=== PATIENT | male | born 1975 | race Caucasian/White ===

== ENCOUNTER 2016-04-25 10:48 | Inpatient (IN) | payer OTHER ==
[~2016-04-25] VITALS: Ht 188 cm; Wt 108.9 kg
--- NOTE | 2016-04-25 10:53 | NUR ---
THOUGHTS OF HURTING HIMSELF FOR THE PAST FEW DAYS, STATES THAT HE CAN'T STOP USING HEROINE , HAS BEEN DRINKING DAILY FOR THE PAST 3 WEEKS. STATES THAT HE IS OVERWHELMED WITH LIFE. HAS A HISTORY OF DEPRESSION AND IT IS GETTING WORSE, DOES NOT TAKE ANY MEDS FOR IT. PLAN TO OVER DOSE
--- NOTE | 2016-04-25 11:26 | ED PSYCHIATRIC COMPLAINT ---
History of Present Illness General Chief Complaint: Psychiatric Related Complaint Stated Complaint: +SI Source: patient Exam Limitations: no limitations Vital Signs & Intake/Output Vital Signs & Intake/Output Vital Signs Date Time Temp Pulse Resp B/P Pulse O2 O2 Flow FiO2 Ox Delivery Rate 04/25 1647 97.5 80 20 130/70 98 Room Air 04/25 1053 97.0 80 18 152/86 97 Room Air Allergies Coded Allergies: NO KNOWN ALLERGIES (09/25/12) Reconcile Medications Gabapentin 600 MG TABLET 1 TAB PO TID UNKNOWN (Reported) Hydrocodone/Acetaminophen (Vicodin 5-300 MG Tablet) 5 MG-300 MG TABLET 1 TAB PO Q4-6 PRN PAIN (Reported) Pantoprazole Sodium (Protonix) 20 MG TABLET.DR 1 TAB PO DAILY GI (Reported) Triage Note: THOUGHTS OF HURTING HIMSELF FOR THE PAST FEW DAYS, STATES THAT HE CAN'T STOP USING HEROINE , HAS BEEN DRINKING DAILY FOR THE PAST 3 WEEKS. STATES THAT HE IS OVERWHELMED WITH LIFE. HAS A HISTORY OF DEPRESSION AND IT IS GETTING WORSE, DOES NOT TAKE ANY MEDS FOR IT. PLAN TO OVER DOSE Triage Nurses Notes Reviewed? yes Onset: Abrupt Duration: constant Timing: recent history Severity: severe Severity Numbers: 10 HPI: Patient is a 40-year-old male with a past medical history of polysubstance abuse and depression who presents to emergency room in which he presented on his own accord who states that he has a history of depression and polysubstance abuse in which she states that his depression has worsened recently in which patient is coping with his depression with drinking alcohol and doing cocaine and heroin. Patient states that he drank a sixpack in the last 12 hours and did cocaine and heroin last night. Patient also states that he has had severe thoughts of "giving up" in which he states that he would harm himself by overdosing on drugs. Patient is unemployed and lives with a roommate. Patient denies any current illness. Denies any auditory or visual hallucinations. Denies any as I a firearm. Patient no homicidal ideation and no previous attempts of harming himself in the past. Patient does state approximate 3 years ago he was evaluated on a few occasions at care however nothing since and patient does not take any medications for symptoms. Past History Travel History Traveled to [place] past 21 day No Medical History Any Pertinent Medical History? none Neurological: NONE EENT: NONE Cardiovascular: NONE Respiratory: NONE Gastrointestinal: NONE Hepatic: NONE Renal: NONE Musculoskeletal: NONE Psychiatric: NONE Endocrine: NONE Blood Disorders: NONE Cancer(s): NONE Surgical History Surgical History: non-contributory Psychosocial History What is your primary language Azeri Tobacco Use: Current Daily Use Daily Tobacco Use Amount/Type: => 5 Cigarettes daily ETOH Use: heavy use Illicit Drug Use: heroin Family History Hx Contributory? No Review of Systems Review of Systems Constitutional: Reports: no symptoms. EENTM: Reports: no symptoms. Respiratory: Reports: no symptoms. Cardiovascular: Reports: no symptoms. GI: Reports: no symptoms. Genitourinary: Reports: no symptoms. Musculoskeletal: Reports: no symptoms. Skin: Reports: no symptoms. Neurological/Psychological: Reports: see HPI, depressed. Hematologic/Endocrine: Reports: no symptoms. Immunologic/Allergic: Reports: no symptoms. All Other Systems: Reviewed and Negative Physical Exam Physical Exam General Appearance: no apparent distress, alert Neurological/Psychiatric: no motor/sensory deficits, awake, alert, calm Appearance/Memory/Insight: appropriate appearance, appropriate insight Behavoir/Eye Contact/Speech: cooperative, normal speech, good eye contact Thoughts/Hallucinations: normal thought pattern, no apparent hallucination Comments: Well-developed well-nourished person in no acute distress HEENT: Normal EENT exam, extraocular motion intact, no nystagmus. Pupils equally round and reactive to light and accommodation. Nose is atraumatic. External auditory canal and Tympanic membranes clear. Pharynx normal. No swelling or edema. Neck: Supple, no lymphadenopathy, normal range of motion without pain or tenderness Back: Nontender, no CVA tenderness. Cardiovascular: Regular rate and rhythms no murmurs rubs or gallops, normal JVP Respiratory: Chest nontender. No respiratory distress.breath sounds clear to auscultation bilaterally Abdomen: Soft, nontender nondistended, no appreciable organomegaly. Normal bowel sounds. No ascites Extremity: No edema, no calf tenderness to palpation, normal and equal pulses. Neuro: Alert oriented x3, motor sensory normal, cranial nerves II through XII grossly intact. Skin: No appreciable rash on exposed skin, skin is warm and dry. Psych: Mood and affect is normal, memory and judgment is normal. SAD PERSONS SAD PERSONS Response Value Male Sex? yes 1 Depression/Hopelessness? yes 2 Excessive Ethanol/Drug Use? yes 1 Single//? yes 1 Organized/Serious Attempt yes 2 Social Support? has no support 1 Stated Future Intent? yes 2 Total 10 SAD PERSONS Done? yes Progress Differential Diagnosis: dementia, drug intoxication, drug overdose, drug withdrawal, electrolyte abnormality, encephalitis, hypoglycemia, hypothyroidism, IC hem/mass/tumor, meningitis Plan of Care: Orders Procedure Date/time Status Regular Diet 04/26 B Active Patient Data - inpatient psych 04/25 1754 Active Admit to inpatient psych 04/25 1754 Active Admit to inpatient psych 04/25 1608 Active Continuous Observation Monitor 04/25 112 Active URINE DRUG SCREEN FOR ER ONLY 04/25 112 Complete LIPASE 04/25 112 Complete ETHANOL 04/25 112 Complete COMPREHENSIVE METABOLIC PANEL 04/25 112 Complete CBC WITHOUT DIFFERENTIAL 04/25 112 Complete AMYLASE 04/25 112 Complete ED CRISIS PSYCH CONSULT 04/25 112 Active Admit to inpatient psych 04/25 UNK Active Vital Signs 04/25 UNK Active CIWA 04/25 UNK Active Alternative Nursing Therapy 04/25 UNK Active Activity/Ambulation 04/25 UNK Active Laboratory Tests 04/25/16 1140: Anion Gap 10, Estimated GFR > 60, BUN/Creatinine Ratio 22.2, Glucose 101 H, Calcium 9.2, Total Bilirubin 0.5, AST 26, ALT 42, Alkaline Phosphatase 62, Total Protein 7.5, Albumin 4.5, Globulin 3.0, Albumin/Globulin Ratio 1.5, Amylase 51, Lipase 83, CBC w Diff NO MAN DIFF REQ, RBC 5.75, MCV 84.2, MCH 28.3, RDW 14.5, MPV 8.5, Gran % 70.8, Lymphocytes % 15.8 L, Monocytes % 9.8 H, Eosinophils % 2.8, Basophils % 0.8, Absolute Granulocytes 5.2, Absolute Lymphocytes 1.2, Absolute Monocytes 0.7 H, Absolute Eosinophils 0.2, Absolute Basophils 0.1, PUBS MCHC 33.7, Serum Alcohol < 10.0 04/25/16 1130: Urine Opiates Screen 2962.00 H, Methadone Screen < 40, Barbiturate Screen < 60, Ur Phencyclidine Scrn < 6.00, Amphetamines Screen < 100, U Benzodiazepines Scrn < 85, Urine Cocaine Screen > 1000 H, Urine Cannabis Screen 70.00 H Icing currently is in no apparent distress no signs of auditory or visual hallucinations. Denies any illness. Discussed patient with crisis management who state the patient will be admitted to Inpatient Psychiatry for concerns of depression and polysubstance abuse (JAXON SY) Departure Departure Disposition: STILL A PATIENT Condition: Critical Clinical Impression Primary Impression: Depression Secondary Impressions: Polysubstance (excluding opioids) dependence Referrals: PATIENT HAS NO PRIMARY CARE DR Departure Forms: Customer Survey General Discharge Information Psych Admission Note Psychiatric Admission: I have seen and evaluated NAWAF HODGES. I have also reviewed all the pertinent lab results and diagnostic results. NAWAF HODGES will be admitted to our inpatient Psychiatric unit for treatment and care. Critical Care Note Critical Care Note Critical Care Time: 30-74 min
[2016-04-25] MEDS ORDERED: GABAPENTIN600 M1 PO (11:41)
[2016-04-25] MEDS ORDERED: PROTONIX20 M1 PO (11:42)
[2016-04-25] MEDS ORDERED: VICODIN 5-3001 EACH PO (11:42)
--- NOTE | 2016-04-25 11:42 | NUR ---
PT TO [facility], WANDED BY SECURITY, CHANGED INTO HOSPITAL SCRUBS. 2 BELONGINGS BAGS LOCKED IN CLOSET, 1 VOLUABLES BAG IN ER SAFE. BLOOD DRAWN AND SENT TO LAB-S[facility],LA[facility]. URINE TRIO SENT TO LAB. AWAITING PROVIDER EVAL.
[2016-04-25 12:09] LABS: ABSOLUTE BASOPHIL COUNT 0.1 /CUMM (0.0-0.2); ABSOLUTE EOSINOPHIL COUNT 0.2 /CUMM (0.0-0.7); ABSOLUTE GRANULOCYTE CT 5.2 /CUMM (1.4-6.5); ABSOLUTE LYMPH COUNT 1.2 /CUMM (1.2-3.4); ABSOLUTE MONOCYTE COUNT 0.7 /CUMM (0.10-0.60); BASOPHIL % 0.8 % (0.0-2.0); EOSINOPHIL % 2.8 % (0-5); GRANULOCYTE % 70.8 % (42.2-75.2); HEMATOCRIT 48.4 % (42-52); MEAN CORPUSCULAR HGB 28.3 PG (27.0-31.0); MEAN CORPUSCULAR HGB CONC 33.7 G/DL (33.0-37.0); MEAN CORPUSCULAR VOLUME 84.2 FL (80.0-94.0); MEAN PLATELET VOLUME 8.5 FL (7.4-10.4); PLATELET COUNT 246 /CUMM (130-400); RBC DISTRIBUTION WIDTH 14.5 % (11.5-14.5); RED BLOOD CELL CT 5.75 /CUMM (4.70-6.10); WHITE BLOOD CELL COUNT 7.4 /CUMM (4.8-10.8)
--- NOTE | 2016-04-25 15:23 | NUR ---
CRISIS AT BEDSIDE FOR PT EVAL.
--- NOTE | 2016-04-25 15:49 | IP CRISIS DIAG ASSESS PSYCH ---
Diagnostic Assessment Basic Assessment Primary Language? Belgian Allergies - Coded Allergies: NO KNOWN ALLERGIES (09/25/12) Current Medications - Scheduled Medications Gabapentin 600 MG TABLET 1 TAB PO TID UNKNOWN (Reported) Entered as Reported by WILLIAM STARKS on 04/25/16 1141 Pantoprazole Sodium (Protonix) 20 MG TABLET.DR 1 TAB PO DAILY GI (Reported) Entered as Reported by WILLIAM STARKS on 04/25/16 1142 Scheduled PRN Medications Hydrocodone/Acetaminophen (Vicodin 5-300 MG Tablet) 5 MG-300 MG TABLET 1 TAB PO Q4-6 PRN PAIN #20 (Reported) Entered as Reported by WILLIAM STARKS on 04/25/16 1142 Past History Past Surgical History Surgical History cholecystectomy Current Mental Status SI/HI Risk Assessment - Minimum 6mo History-
--- NOTE | 2016-04-25 15:49 | ED PSYCH CRISIS CONSULTATION ---
Crisis Consult Basic Assessment Date of Consult: 04/25/16 Responsible Person/Accompanied By: Self Insurance Authorization: Insurance #1: Insurance name: EDGARD PEREA Phone number: Policy number: [id number] Group number: Authorization number: ED Provider: Patient's ED Provider: JAXON SY Primary Care Physician: Patient's PCP: UNKNOWN PCP's Phone Number: Current Psychiatrist: Chandni Lock MD Chief Complaint: Psychiatric Related Complaint Patient's Quote: "I have thoughts of killing myself with excessive amounts of drugs." Present Illness: The patient is a 40 year old single male presenting to the ED with a complaint of SI with a plan, depression and substance abuse. The patient presented as sad, depressed, and tired with his eyes closing at times during the assessment. The patient states he "does not want to live like this anymore and I need to do something before I end up ." He further states "I have thoughts of killing myself by using excessive amounts of drugs because I am too much of a chicken to feel anything when I do it." He reports depressed mood, interrupted sleep (not having slept for the past two days), decreased energy/ motivation and difficulty concentrating. He reports depression of 10 and anxiety of 8 on a scale of 0 to 10 (10 being most severe). He reports no HI, auditory hallucinations or visual hallucinations. The patient states his triggers are feeling overwhelmed that "nothing seems to be going my way", financial difficulties, unstable employment and breaking up with his girlfriend a couple of weeks ago. He reports feeling hopeless and helpless. He reports having no HI, auditory hallucinations or visual hallucinations. The patient reports a history of substance dependence. He currently reports abusing primarily heroin and cocaine on a daily basis and drinking as much alcohol "as he can afford." He reports using "an eight ball" of cocaine and "multiple bags " of heroin daily. Per hospital records and self-report the patient has been admitted for inpatient treatment at [facility] in 2012. The patient reports he does not feel safe going home and requests inpatient treatment to treat his SI, depression and substance dependence. Spoke to patient's mother, Tamy Saldana who states "Gary is not normal and needs help. he is basically a good person, but he needs help." She states that Gary had a "terrible time" in school and was diagnosed with ADHD as a child. She states the patient had seen a psychologist in [place] when he was younger and she was not aware of other treatment he received. She reports that the patient had a long history of struggling with drug use and was incarcerated for 8 years. Tamy states that she is concerned for the patient's safety and request he be admitted to "get the help he needs." This report written by [employer] and signed off by Milka Rivas LCSW Patient's Address: [address] [place] [address] Home Phone Number: [phone] Other Phone Number: Who Do You Live With? Friend Family/Informants Interviewed: Mother-Tamy Saldana Allergies - Coded Allergies: NO KNOWN ALLERGIES (09/25/12) Current Medications - Scheduled Medications Gabapentin 600 MG TABLET 1 TAB PO TID UNKNOWN (Reported) Entered as Reported by WILLIAM STARKS on 04/25/16 1141 Pantoprazole Sodium (Protonix) 20 MG TABLET.DR 1 TAB PO DAILY GI (Reported) Entered as Reported by WILLIAM STARKS on 04/25/16 1142 Scheduled PRN Medications Hydrocodone/Acetaminophen (Vicodin 5-300 MG Tablet) 5 MG-300 MG TABLET 1 TAB PO Q4-6 PRN PAIN #20 (Reported) Entered as Reported by WILLIAM STARKS on 04/25/16 1142 Laboratory Results: Laboratory Tests 04/25/16 1140: Anion Gap 10, Estimated GFR > 60, BUN/Creatinine Ratio 22.2, Glucose 101 H, Calcium 9.2, Total Bilirubin 0.5, AST 26, ALT 42, Alkaline Phosphatase 62, Total Protein 7.5, Albumin 4.5, Globulin 3.0, Albumin/Globulin Ratio 1.5, Amylase 51, Lipase 83, CBC w Diff NO MAN DIFF REQ, RBC 5.75, MCV 84.2, MCH 28.3, RDW 14.5, MPV 8.5, Gran % 70.8, Lymphocytes % 15.8 L, Monocytes % 9.8 H, Eosinophils % 2.8, Basophils % 0.8, Absolute Granulocytes 5.2, Absolute Lymphocytes 1.2, Absolute Monocytes 0.7 H, Absolute Eosinophils 0.2, Absolute Basophils 0.1, PUBS MCHC 33.7, Serum Alcohol < 10.0 04/25/16 1130: Urine Opiates Screen 2962.00 H, Methadone Screen < 40, Barbiturate Screen < 60, Ur Phencyclidine Scrn < 6.00, Amphetamines Screen < 100, U Benzodiazepines Scrn < 85, Urine Cocaine Screen > 1000 H, Urine Cannabis Screen 70.00 H Past History Past Medical History Neurological: NONE EENT: NONE Cardiovascular: NONE Respiratory: NONE Gastrointestinal: NONE Hepatic: NONE Renal: NONE Musculoskeletal: NONE Psychiatric: NONE Endocrine: NONE Blood Disorders: NONE Cancer(s): NONE Psychosocial History 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 Physical Limitations (Interventions): None Psychiatric Treatment History Psych Treatment Psychiatric Treatment Yes Inpatient Treatment Yes Outpatient Treatment Yes Location of Treatment [facility] Reason for Treatment Depression and substance dependence Dates of Treatment 2012 Diagnosis by History: Mood Disorder NOS, opioid dependence, cocaine dependence, alcohol dependence and cannabis use disorder Substance Use/Abuse History Drug Use/Abuse 1 Substances Used/Abused Yes Substance Used/Abused Cocaine First Use 16 years old Last Used 04/24/16 How much used/taken 1/8 oz. How often daily For how long Most recent episode past several weeks Route of use Intranasal and inhale (Crack) Drug Use/Abuse 2 Substances Used/Abused Yes Substance Used/Abused Heroin First Use 28 years old Last Used 04/24/16 How much used/taken "Couple of bags" How often Daily For how long Most recent episode past several weeks Route of use Intranasal Drug Use/Abuse 3 Substances Used/Abused Yes Substance Used/Abused Marijuana First Use 13 years old Last Used 04/25/16 How much used/taken "Couple of puffs" How often "occasionally" For how long Since age 13 Route of use Inhale Drug Use/Abuse 4 Substances Used/Abused Yes Substance Used/Abused Alcohol First Use 10 years old Last Used 04/24/16 How much used/taken "Whatever I can afford" How often Daily For how long On and off since age 10 Route of use oral Substance Abuse Treatment Substance Abuse Treatment Past Substance Abuse [place] Yes Inpatient Treatment Yes Outpatient Treatment Yes Location of Treatment [facility] Reason for Treatment opioid, cocaine and alcohol dependence Dates of Treatment 2012; Detox-1999 Response to Treatment relapse Comments: None Current Mental Status Mental Status Orientation: Person, Place, Situation Affect: Depressed, Hopeless, Sad Speech: WNL Neuro-vegetative: Anhedonia, Concentration Poor, Energy Decreased, Helpless, Loss of Interest, Sexual Interest Decreased, Sleep Disturbance Appearance Appearance- Dress/Hygiene: Patient was dressed in hospital scrubs. Patient presented as tired with his eyes clsoing at points during the assessment and requesting I repeat the question asked. Behaviors Thought Process: WNL Thought Content: WNL Memory: WNL Insight: Fair SI/HI Risk Assessment Past Suicidal Ideation/Attempts Yes Current Suicidal Ideation/Att Yes Past Homicidal Ideation/Att: No Current Homicidal Ideation/Attempts No Degree of Intent: Plan, States Intent Danger To: Self Gravely Disabled: Poor Impulse Control, Poor Judgment Risk Factors: access to lethal means, high anxiety/distress, SA/MH hospitalized, substance abuse, poor impulse control, lack of outcome concern, male Lethality Ratin PTSD Checklist PTSD Done? patient declined ED Management Sitter: Yes Restraints: No DSM5/PS Stressors/Medical Prob Diagnosis' (DSM 5, Stressors, Medical): F32.9 Unspecified Depressive Disorder F11.20 Opioid Use Disorder, Moderate F14.10 Stimulant (Cocaine) Use Disorder, Severe F12.10 Cannabis Use Disorder F10.20 Alcohol Use Disorder, Moderate Current GAF: 25 Comments: None Departure Disposition Psych Medical Clearance Date: 04/25/16 Medically Cleared at: 1445 Time Started: 1445 Time Ended: 1530 Psychiatrist Consulted: Chandni Lock MD Date Disposition Established: 04/25/16 Time Disposition Established: 1544 Plan for Disposition - Modality: Inpatient Psychiatry Facility: [facility] Rationale for Disposition: Patient reports SI with plan to kill himself by 'using excessive amounts of drugs." The patient reports severe depression and recent relapse with opiates, cocaine, alcohol and marijuana. He reports being hopeless and helpless, not feeling safe going home. Type of IP Admission: Voluntary Additional Instructions: None Referrals UNKNOWN (PCP)
--- NOTE | 2016-04-25 16:44 | NUR ---
PT RESTING ON STRETCHER, OFFERING NO COMPLAINTS AT THIS TIME. VSS. SITTED AT BEDSIDE.
--- NOTE | 2016-04-25 17:10 | IP CRISIS DIAG ASSESS PSYCH ---
Diagnostic Assessment Basic Assessment Insurance Authorization: Insurance #1: Insurance name: EDGARD PEREA Phone number: Policy number: [id number] Group number: Authorization number: [id number] Primary Care Physician: Patient's PCP: UNKNOWN PCP's Phone Number: Patient's Quote: "I have thoughts of killing myself with excessive amounts of drugs." Present Illness: The patient is a 40 year old single male presenting to the ED with a complaint of SI with a plan, depression and substance abuse. The patient presented as sad, depressed, and tired with his eyes closing at times during the assessment. The patient states he "does not want to live like this anymore and I need to do something before I end up ." He further states "I have thoughts of killing myself by using excessive amounts of drugs because I am too much of a chicken to feel anything when I do it." He reports depressed mood, interrupted sleep (not having slept for the past two days), decreased energy/ motivation and difficulty concentrating. He reports depression of 10 and anxiety of 8 on a scale of 0 to 10 (10 being most severe). He reports no HI, auditory hallucinations or visual hallucinations. The patient states his triggers are feeling overwhelmed that "nothing seems to be going my way", financial difficulties, unstable employment and breaking up with his girlfriend a couple of weeks ago. He reports feeling hopeless and helpless. He reports having no HI, auditory hallucinations or visual hallucinations. The patient reports a history of substance dependence. He currently reports abusing primarily heroin and cocaine on a daily basis and drinking as much alcohol "as he can afford." He reports using "an eight ball" of cocaine and "multiple bags " of heroin daily. Per hospital records and self-report the patient has been admitted for inpatient treatment at [facility] in 2012. The patient reports he does not feel safe going home and requests inpatient treatment to treat his SI, depression and substance dependence. Spoke to patient's mother, Tamy Saldana who states "Gary is not normal and needs help. he is basically a good person, but he needs help." She states that Gary had a "terrible time" in school and was diagnosed with ADHD as a child. She states the patient had seen a psychologist in [place] when he was younger and she was not aware of other treatment he received. She reports that the patient had a long history of struggling with drug use and was incarcerated for 8 years. Tamy states that she is concerned for the patient's safety and request he be admitted to "get the help he needs." This report written by Griselda Traylor MSW Librarian and signed off by Milka Rivas LCSW Patient's Address: [address] [place] [address] Home Phone Number: [phone] Other Phone Number: Who Do You Live With? Friend Feel Safe Where You Live? Yes Feel Safe in Your Relationship Yes Marital Status: single Do You Have Children? No Primary Language? Libyan Language(s) Spoken At Home: Libyan Family/Informants Interviewed: Mother-Tamy Saldana Allergies - Coded Allergies: NO KNOWN ALLERGIES (09/25/12) Current Medications - Scheduled Medications Gabapentin 600 MG TABLET 1 TAB PO TID UNKNOWN (Reported) Entered as Reported by WILLIAM STARKS on 04/25/16 1141 Pantoprazole Sodium (Protonix) 20 MG TABLET.DR 1 TAB PO DAILY GI (Reported) Entered as Reported by WILLIAM STARKS on 04/25/16 1142 Scheduled PRN Medications Hydrocodone/Acetaminophen (Vicodin 5-300 MG Tablet) 5 MG-300 MG TABLET 1 TAB PO Q4-6 PRN PAIN #20 (Reported) Entered as Reported by WILLIAM STARKS on 04/25/16 1142 Consequences of Psych Med Use: N/A Comment: None Lab Results: Laboratory Tests 04/25/16 1140: Anion Gap 10, Estimated GFR > 60, BUN/Creatinine Ratio 22.2, Glucose 101 H, Calcium 9.2, Total Bilirubin 0.5, AST 26, ALT 42, Alkaline Phosphatase 62, Total Protein 7.5, Albumin 4.5, Globulin 3.0, Albumin/Globulin Ratio 1.5, Amylase 51, Lipase 83, CBC w Diff NO MAN DIFF REQ, RBC 5.75, MCV 84.2, MCH 28.3, RDW 14.5, MPV 8.5, Gran % 70.8, Lymphocytes % 15.8 L, Monocytes % 9.8 H, Eosinophils % 2.8, Basophils % 0.8, Absolute Granulocytes 5.2, Absolute Lymphocytes 1.2, Absolute Monocytes 0.7 H, Absolute Eosinophils 0.2, Absolute Basophils 0.1, PUBS MCHC 33.7, Serum Alcohol < 10.0 04/25/16 1130: Urine Opiates Screen 2962.00 H, Methadone Screen < 40, Barbiturate Screen < 60, Ur Phencyclidine Scrn < 6.00, Amphetamines Screen < 100, U Benzodiazepines Scrn < 85, Urine Cocaine Screen > 1000 H, Urine Cannabis Screen 70.00 H Toxicology Screen Completed? Yes Results: positive Symptoms of Use: Patient reports daily use of heroin, cocaine and alcohol. He presents with depression, anhedonia and exhaustion from use. He reports decreased energy.motication and difficulty concentrating. Past History Past Surgical History Surgical History cholecystectomy Abuse/Trauma History Trauma History/Current Trauma: Denies Legal History Current Legal Status: on parole Have you ever been arrested? 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 Physical Limitations (Interventions): None Psychiatric Treatment History Psych Treatment Psychiatric Treatment Yes Inpatient Treatment Yes Outpatient Treatment Yes Location of Treatment [facility] Reason for Treatment Depression and substance dependence Dates of Treatment 2013 Response to Treatment Patient reports current SI with plan and depression Diagnosis by History: Mood Disorder NOS, opioid dependence, cocaine dependence, alcohol dependence and cannabis use disorder Risk Factors: access to lethal means, high anxiety/distress, SA/MH hospitalized, substance abuse, poor impulse control, lack of outcome concern, male Substance Use/Abuse History Drug Use/Abuse minimum 12mo Hx 1 Substances Used/Abused Yes Substance Used/Abused Alcohol First Use 10 years old Last Used 04/24/16 How much used/taken "Whatever I can afford" How often Daily For how long On and off since age 10 Route of use oral Drug Use/Abuse minimum 12mo Hx 2 Substances Used/Abused Yes Substance Used/Abused Heroin First Use 28 years old Last Used 04/24/16 How much used/taken "Couple of bags" How often daily For how long Most recent episode past several weeks Route of use Intranasal Drug Use/Abuse minimum 12mo Hx 3 Substances Used/Abused Yes Substance Used/Abused Cocaine First Use 16 years old Last Used 04/24/16 How much used/taken 1/8 oz. How often Daily For how long Most recent episode past several weeks Route of use Intranasal & Smoke (Crack) Drug Use/Abuse minimum 12mo Hx 4 Substances Used/Abused Yes Substance Used/Abused Marijuana First Use 10 years old Last Used 04/25/16 How much used/taken "Couple of puffs" How often On occassion For how long Since age 10 Route of use Inhale-Oral Substance Abuse Treatment Substance Abuse Treatment Past Substance Abuse [place] Yes Inpatient Treatment Yes Outpatient Treatment Yes Location of Treatment [facility] Reason for Treatment opioid, cocaine and alcohol dependence Dates of Treatment 2012; Detox-1999 Response to Treatment relapse Comments: None Sexual History Sexually Active No # of partners 0 Sexual Orientation Heterosexual Use of Protection Yes Sometimes Sexual Concerns: None Education History Highest Level of Education: high school/GED Preferred Learning Style: experiential Current Mental Status Mental Status Orientation: Person, Place, Situation Affect: Depressed, Hopeless, Sad Speech: WNL Neuro-vegetative: Anhedonia, Concentration Poor, Energy Decreased, Helpless, Loss of Interest, Sexual Interest Decreased, Sleep Disturbance Appearance Appearance- Dress/Hygiene: Patient was dressed in hospital scrubs. Patient presented as tired withhis eyes closing at points during the assessment and requesting I repeat the question asked. Behaviors Thought Process: WNL Thought Content: WNL Memory: WNL Insight: Fair SI/HI Risk Assessment - Minimum 6mo History- Past Suicidal Ideation/Attempts Yes Current Suicidal Ideation/Att Yes Past Homicidal Ideation/Att: No Current Homicidal Ideation/Attempts No Degree of Intent: Plan, States Intent Danger To: Self Gravely Disabled: Poor Impulse Control, Poor Judgment Risk Factors: access to lethal means, high anxiety/distress, SA/MH hospitalized, substance abuse, poor impulse control, lack of outcome concern, male Lethality Ratin Needs/Init TX Plan/Goals: Patient needs to stabilize by addressing SI and depression. Patient needs detox from opioid/alcohol use. Patient to learn positive coping skills to deal with symptoms of depression and substance dependence. AUDIT-C Questionnaire: AUDIT-C Questionnaire: Response Value ETOH use in the past year 2-4 times/week 3 # drinks typical/day 3 or 4 1 6 or > drinks per occasion Less than monthly 1 Total 5 DSM5/PS Stressors/Medical Prob Diagnosis' (DSM 5, Stressors, Medical): F32.9 Unspecified Depressive Disorder F11.20 Opioid Use Disorder, Moderate F14.10 Stimulant (Cocaine) Use Disorder, Severe F12.10 Cannabis Use Disorder F10.20 Alcohol Use Disorder, Moderate Current GAF: 25 Comments: None
--- NOTE | 2016-04-25 17:18 | SOCIAL WORKER SOCIAL HX PSYCH ---
Social History Basic Assessment Insurance Authorization: Insurance #1: Insurance name: EDGARD PEREA Phone number: Policy number: [id number] Group number: Authorization number: Curr Source of Income/Entitlements: N/A Primary Care Physician: Patient's PCP: UNKNOWN PCP's Phone Number: Present Problem: The patient is a 40 year old single male presenting to the ED with a complaint of SI with a plan, depression and substance abuse. The patient presented as sad, depressed, and tired with his eyes closing at times during the assessment. The patient states he "does not want to live like this anymore and I need to do something before I end up ." He further states "I have thoughts of killing myself by using excessive amounts of drugs because I am too much of a chicken to feel anything when I do it." He reports depressed mood, interrupted sleep (not having slept for the past two days), decreased energy/ motivation and difficulty concentrating. He reports depression of 10 and anxiety of 8 on a scale of 0 to 10 (10 being most severe). He reports no HI, auditory hallucinations or visual hallucinations. The patient states his triggers are feeling overwhelmed that "nothing seems to be going my way", financial difficulties, unstable employment and breaking up with his girlfriend a couple of weeks ago. He reports feeling hopeless and helpless. He reports having no HI, auditory hallucinations or visual hallucinations. The patient reports a history of substance dependence. He currently reports abusing primarily heroin and cocaine on a daily basis and drinking as much alcohol "as he can afford." He reports using "an eight ball" of cocaine and "multiple bags " of heroin daily. Per hospital records and self-report the patient has been admitted for inpatient treatment at [facility] in 2012. The patient reports he does not feel safe going home and requests inpatient treatment to treat his SI, depression and substance dependence. Spoke to patient's mother, Tamy Saldana who states "Gary is not normal and needs help. he is basically a good person, but he needs help." She states that aGry had a "terrible time" in school and was diagnosed with ADHD as a child. She states the patient had seen a psychologist in [place] when he was younger and she was not aware of other treatment he received. She reports that the patient had a long history of struggling with drug use and was incarcerated for 8 years. Tamy states that she is concerned for the patient's safety and request he be admitted to "get the help he needs." This report written by Griselda Traylor MSW Ship/Rec/Doc Control and signed off by Milka Rivas LCSW Primary Language? Prydein[place] Language(s) Spoken At Home: [place] Living Situation Other Living Arrangement: friend's home Feel Safe Where You Are Living Yes Feel Safe in Relationships? Yes Comments: Lives with friend [address] [place] [address] Allergies - Coded Allergies: NO KNOWN ALLERGIES (09/25/12) Current Medications - Scheduled Medications Gabapentin 600 MG TABLET 1 TAB PO TID UNKNOWN (Reported) Entered as Reported by WILLIAM STARKS on 04/25/16 1141 Pantoprazole Sodium (Protonix) 20 MG TABLET.DR 1 TAB PO DAILY GI (Reported) Entered as Reported by WILLIAM STARKS on 04/25/16 1142 Scheduled PRN Medications Hydrocodone/Acetaminophen (Vicodin 5-300 MG Tablet) 5 MG-300 MG TABLET 1 TAB PO Q4-6 PRN PAIN #20 (Reported) Entered as Reported by WILLIAM STARKS on 04/25/16 1142 Consequences of Psych Med Use: N/A Comments: N/A Past History Past Medical History Neurological: NONE EENT: NONE Cardiovascular: NONE Respiratory: NONE Gastrointestinal: NONE Hepatic: NONE Renal: NONE Musculoskeletal: NONE Psychiatric: NONE Endocrine: NONE Blood Disorders: NONE Cancer(s): NONE Past Surgical History Surgical History: non-contributory /Family History Place/Country of Origin: [place], [place] Childhood Family Constellation: Youngest child with 3 sisters and 1 brother, mother and father living Primary Childhood Caretakers: father, mother Family Life During Childhood: Patient reports come arguing in family, but they are supportive of each other DCF Involvement? No Mother's Age (Current/): 72 Relationship w/Mother: Good Father's Age (Current/): 75 Relationship w/Father: Good Any Sibling(s)? Yes Sibling's Gender(s)/Age(s): female Sibling 1:, female Sibling 2:, female Sibling 3:, male Sibling 4: Relationship w/Sibling(s): Siblings are supportive of patient Relationship w/Friends: Patient reports supportive friends in [place]. Family Psych/Sub Abuse/Add Hx: diagnosis Other Comments: Patient's mother, Tamy Saldana reports patient's grandfather had mental health issues. Abuse/Trauma History Trauma History/Current Trauma: Denies Abuse/Trauma Treatment: N/A Legal History Legal Guardian/Address/Phone: N/A Current Legal Status: on parole Pending Court Dates: None Have you ever been arrested Yes Number of Arrests: 1 Hx of Juvenile Legal Charges? No Hx of Adult Legal Charges? Yes If Yes: felony List/Date Most Recent Lgl Chgs: 2004-Illegal sale of firearms- Incarcerated approx. 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 Weaknesses: Patient has lack of insight and lack of coping skills to address symptoms of depression and substance abuse. Physical Limitations (Interventions): None Last Physical: 6 months ago History of Seizures? No History of Blackouts? No ADL Limitations: n/A [place]/Social/Peer Relations Patient reports he has support of parents, siblings and friends (NA) Meaningful Activities: Fishing Childhood Baptism: Yarsanism Current Moravian Affiliation: Yarsanism Is Spirituality Important to You? Yes Patient's Ethnicity: Prydeinig (Angolan) Cultural/Ethnic Issues: None Are There Developmental Issues? 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/A Treatment of Prior Episodes: [facility] & IOP-2013 Diagnosis: Mood Disorder NOS, opioid dependence, cocaine dependence, alcohol dependence and cannabis use disorder Psychodynamic Issues: Finances and permanent housing Risk Factors: access to lethal means, high anxiety/distress, SA/MH hospitalized, substance abuse, poor impulse control, lack of outcome concern, male Substance Use/Abuse History Drug Use/Abuse 1 Substance Used/Abused Marijuana First Use 16 years old Last Used 04/25/16 How much used/taken "Couple of puffs" How often On occassion For how long Since age 10 Route of use Inhale-Oral Drug Use/Abuse 2 Substance Used/Abused Heroin First Use 28 years old Last Used 04/24/16 How much used/taken "Couple of bags" How often daily For how long Most recent episode past several weeks Route of use intranasal Drug Use/Abuse 3 Substance Used/Abused Cocaine First Use 16 years old Last Used 04/24/16 How much used/taken 1/8 oz. How often daily For how long Most rec. episode past several weeks Route of use Intranasal & Inhale (Crack) Drug Use/Abuse 4 Substance Used/Abused Alcohol First Use 10 years old Last Used 04/25/16 How much used/taken "As much as I can afford" How often On occassion For how long Since age 10 Route of use Oral Have Had Periods of Sobriety? Yes Explain: Patient reports being sober while incarcerated from 2003 to 2011 Relapse History? Yes Explain: Patient reports history of relapses, most recent commencing approx. 1 month ago Have You Ever Attended AA? Yes Do You Attend AA Currently? No Do You Have a Sponsor? No Other Community Resources Used: NA Symptoms of Use: Patient reports daily use of heroin, cocaine and alcohol. He presents with depression, anhedonia and exhaustion from use. He reports decreased energy.motication and difficulty concentrating. Substance Abuse Treatment Substance Abuse Treatment Inpatient Treatment Yes Outpatient Treatment Yes Location of Treatment [facility] Reason for Treatment opioid, cocaine and alcohol dependence Dates of Treatment 2012; Detox-1999 Response to Treatment relapse Sexual History Sexually Active No # of partners 0 Sexual Orientation Heterosexual Use of Protection Yes Sometimes Sexual Concerns: None Education History Highest Level of Education: high school/GED Highest Grade Completed: 12th Vocational Year Completed: N/A Number of College Years: 0 College Degree/Major: N/A Other Degree(s): N/A Preferred Learning Style: experiential HX of Learning Difficulties: ADHD Barriers to Learning: ADHD Special Communication Needs: None reported Employment History Employment Unemployed Not in Labor Force: Currently unemployed 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 No If Yes, Explain: N/A Type of Discharge: N/A Date of Discharge: N/A Current Mental Status Mental Status Orientation: Person, Place, Situation Affect: Depressed, Hopeless, Sad Speech: WNL Neuro-vegetative: Anhedonia, Concentration Poor, Energy Decreased, Helpless, Loss of Interest, Sexual Interest Decreased, Sleep Disturbance Appearance Appearance- Dress/Hygiene: Patient was dressed in hospital scrubs. Patient presented as tired withhis eyes closing at points during the assessment and requesting I repeat the question asked. Behaviors Thought Process: WNL Thought Content: WNL Memory: WNL Insight: Fair SI/HI Risk Assessment Past Suicidal Ideation/Attempts Yes Current Suicidal Ideation/Att Yes Past Homicidal Ideation/Att: No Current Homicidal Ideation/Attempts No Degree of Intent: Plan, States Intent Danger To: Self Gravely Disabled: Poor Impulse Control, Poor Judgment Risk Factors: High Anxiety/Distress, SA/MH Hospitalization(s), Lack of concern outcome, Male, Poor impulse control, Substance Abuse Lethality Ratin - Conclusion and Recommendations for treatment - and discharge planning
--- NOTE | 2016-04-25 17:54 | NUR ---
FOOD ORDERED FOR PT.
--- NOTE | 2016-04-25 19:38 | NUR ---
LABS DRAWN AND SENT [facility]ST [facility]
--- NOTE | 2016-04-25 19:49 | NUR ---
PT CALM AND COOPERATIVE. REPORT GIVEN TO STEVEN RIOS. TRANSPORT CALLED
--- NOTE | 2016-04-25 21:13 | NUR ---
40 YEAR OLD MALE PATIENT ADMITTED TO [facility] WITH DIAGNOSIS OF MAJOR DEPRESSION RECURRENT SEVERE WITH SUICIDAL IDEATION; CURRENT SUICIDAL PLAN IS TO OVERDOSE ON DRUGS; PATIENT REPORTS DRINKING UP TO A PINT OF HARD LIQUOR AT A TIME, NOT ALWAYS EVERY DAY, REPORTS MORE FREQUENT USE OF HEROINE, COCAIN, CANNABIS, BENZODIAZEPINES; HE STATED "I JUST WANTED TO GIVE UP, I COULDN'T STOP USING DRUGS"; AFFECT PRESENTS FLAT, DEPRESSED; PATIENT IS ALERT AND ORIENTED X3, AND DENIES INTENT TO HARM HIMSELF WHILE IN THE HOSPITAL; HE REPORTS NOT GETTING ALONG WELL WITH HIS ROOMMATE, POOR SLEEP, AND NOT ALWAYS EATING MEALS, ESPECIALLY WHEN USING DRUGS; ADMISSION VITAL SIGNS WNL; PATIENT WILL BE MONITORED PER RADHA, CHRISTOFER, PROTOCOLS; SKIN INTACT; DR. LAGUERRE WRITING ADMISSION ORDERS; DR. DUBON NOTIFIED FOR H&P.
[2016-04-25 21:43] VITALS: BP 136/75
[2016-04-26] VITALS (10 sets, daily range): BP systolic 126–148; BP diastolic 60–79
--- NOTE | 2016-04-26 06:28 | NUR ---
PATIENT WAS BRIEFLY AWAKE AT 0500 TO BATHROOM; RESTING PULSE WAS 50, AFTER GOING TO BATHROOM, PULSE WAS 76; PATIENT SLEPT ALL NIGHT OTHERWISE.
--- NOTE | 2016-04-26 12:31 | CPS MD/APRN INITIAL ASSE PSYCH ---
Psychiatric Admission Special Effects Makeup Artist's Note Reviewed: Yes Patient Seen and Examined: Yes Identifying Information: Patient is a 40-year old male. Chief Complaint: "I feel miserable." Reaction to Hospitalization: "I know I need help." History of Present Illness Onset of Illness: Patient is a 40-year old male with a h/o mood disorder nos and polysubstance dependence, and 1 prior inpatient psychiatric hospitalization on [facility] (09/24/12-), who presented to ED on 04/25/16 with suicidal ideation and plan to overdose on drugs. Utox (+) for opiates, cocaine, and cannabis in ED. Patient reported primary stressors being:: "on special parole which limits the contact I have with my girlfriend," "drugs," "finances." Reported depression exacerbated in 03/2016 around the holidays, which caused patient to resume self- medicating. Reports feeling hopeless, helpless. He denied feeling worthless and guilty. Reports symptoms including low motivation, poor concentration, decreased energy, loss of interest. He denied changes in sleep pattern or change in appetite. He denied recent/past history of AH, VH, HI. Presently, he denies SI, plans and intent. He denies HI. Thought process is linear and organized. No evidence of underlying psychotic process, paranoia or delusions. Patient reported increased substance use since 03/2016. Reported sporadic alcohol use varying in quantity. Denied daily alcohol use and hx of complicated withdrawal of DTs or Szs. Reported daily heroin use, "a couple of bags" daily. Reported daily crack/cocaine (smoking/intranasal) use of "$100.00 worth". Reported "occasional" cannabis use of "a couple puffs when I use." Circumstances Leading to Admission: + SI, worsening depression, polysubstance use, financial and legal stress, limited contact with girlfriend secondary to legal issues. Problem(s) Justifying Need for Admission: +SI and plan to overdose on illicit substances. Past Psychiatric History Past Diagnosis(es)- if any: ADHD by history Unspecifed depressive disorder Opioid use disorder, moderate Stimulant (cocaine) use disorder, severe Cannabis use disorder, mild Alcohol use disorder, moderate Past Precipitating Factors- if any: Polysusbtance abuse - Include inpatient and outpatient treatment Treatment History: [facility] (09/24/12-09/23/12) Pt reported previous treatment in [facility] "years ago" (not evident from [facility] records) History of Suicide Attempts or Gestures Patient denied Substance Abuse History: Alcohol - varying in quantity. Denied daily alcohol use and hx of complicated withdrawal of DTs or Szs. ALONSO of etoh: 04/24/16 "a couple of beers." Heroin - "a couple of bags" daily intranasally. ALONSO: 04/24/16. Crack/cocaine (smoking/intranasal): daily use of "$100.00 worth". ALONSO: 04/24/16. Cannabis : "a couple puffs when I use." Reported occasional use. Could not recall date of last use. Allergies: Coded Allergies: NO KNOWN ALLERGIES (09/25/12) Home Med List: Per pt: Gabapentin 600mg TID for neuropathic pain Pt denied being on any other prescription medications. - Include any medical condition(s) that may - impact the patient's recovery/remission Past Medical History: Neuropathic pain/back pain Past History Medical History Neurological: NONE EENT: NONE Cardiovascular: NONE Respiratory: NONE Gastrointestinal: NONE Hepatic: NONE Renal: NONE Musculoskeletal: NONE Psychiatric: alcohol dependence, depression, insomnia, opioid dependence, substance abuse Endocrine: pancreatitis Blood Disorders: NONE Cancer(s): NONE History of MRSA: No History of VRE: No History of CDIFF: No Isolation History: Standard Influenza Vaccine: 02/02/16 Surgical History Surgical History: cholecystectomy Psychiatric Family/Social Hx Family History Psychiatric Illness: Patient reported history of depression on both maternal and paternal sides of family. Reported his sister is on Lexapro which has managed her depression well. Substance Use: Patient denied a known history of family substance abuse. Suicides: Patient denied a known family history of suicide attempts. Social History Living Situation: Patient reports living in [place] at [facility] secondary to "special probation." Reports having approx 3 more months of living there. Significant Relationships (family/friends): Identified his girlfriend, his mother, and two sisters as his primary supports. Education: HS Diploma. 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 Legal: Per [place] Judicial site: [place] 4th degree (2012) Illegal possession of weapon in motor vehicle (2013) Breach of peace (2013) Criminal trespass 1st degree (2013) Per pt, previous incarceration x 8 years. Healthly Behaviors Screening Tobacco Screening Tobacco Use from ED Docu: Current Daily Use Daily Tobacco Use Amount/Type: => 5 Cigarettes daily - If tobacco counseling indicated - the following topics are required. - #1 Recognizing dangerous situations. - #2 Coping Skills. - #3 Basic information about quitting. Status of Tobacco Cessation Counseling: #1, #2 AND #3 Completed Cessation Med Status: Nicotine Patch Ordered Alcohol Screening - ETOH screen POS if BAL >=80 or Audit-C>= M4/F3 Audit-C Score from Diag Assess: 5 Blood Alcohol Level: Laboratory Tests 04/25 1140 Toxicology Serum Alcohol (<10 MG/DL) < 10.0 Alcohol Use Screening Results: Pos per Audit C &/or BAL - If ETOH counseling indicated - the following topics are required. - #1 Express concern about the patient's - drinking at unhealthy levels, include informing - of national norms for moderate drinking: - men <= 14 drinks/week, max 4 drinks/occasion - women <= 7 drinks/week, max 3 drinks/occasion - #2 Providing feedback, including linking alcohol to - negative physical effects (liver injury, hypertension) - negative emotional effects (relationship problems and - depression) - negative occupational consequences (reduced work - performance) - #3 Advising the patient to abstain from alcohol or - to drink below national norms for moderate drinking - (as listed above). Status of ETOH Use Counseling: #1, #2 AND #3 Completed. Metabolic Screening - Screen if on a Neuroleptic Medication - Metabolic screening should include: - Blood Pressure, BMI, Glucose or Hgb A1c, & a - Lipid profile from within the past 365 days. Metabolic Screening ([X]) Not Applicable, patient not on a neuroleptic. OR () Patient on a neuroleptic(s) . Enter below results for Glucose or Hemoglobin A1C, and lipid panel if obtained during the last 365 days. BMI: 30.800 Blood Pressure: 145/79 Laboratory Results (If applicable): n/a Exam and Plan Mental Status Examination Ambulation Status: Steady and independent Appearance: Tall, fairly groomed, in clean shirt and pants. Attitude towards examiner: Cooperative Psychomotor activity: WNL Behavior: WNL Quality of speech: Normal in rate, tone and volume. Affect: Constricted. Mood: "Depressed" Suicidal Ideation: Pt denied Homicidal Ideation: Pt denied Hallucinations: Pt denied Paranoid/Delusional Material: None evident. Difficulties with thought organization: None evident. Insight: Limited Judgment: Limited Orientation: A&Ox3. Cognition: Grossly intact Memory Function: Grossly intact Estimate of intellectual functioning: Average Assets/Strengths Patient Identified Assets/Strengths: Supportive family and girlfriend, motivated for treatment, employed Impression/Plan Impression and Plan: Patient is a 40-year old male with a history significant for depression and polysubstance abuse who presents for inpatient hospitalization voluntarily for heightened symptoms in the context of legal issues, polysubstance abuse, and no relationship with an outpatient psychiatric services. Patient would likely benefit from trial of antidepressant, opiate detox, development of coping skills , and abstinance from substances, and being connected with a dual IOP level of care post-discharge, for stabilization and continued management of psychiatric symptoms and sobriety. Reviewed trials of SSRI vs. SNRI to target anxiety/depression. Patient agreable to trial of Lexapro, as his sister responded well to Lexapro for depression. Reviewed the risk/benefit/SE profiles of Lexapro with the patient who verbalized understanding of medication education and was agreeable to trial. - Include all active medical diagnosis that require tx DSM 5 Diagnosis(es): Unspecified depressive disorder Unspecified anxiety disorder Opioid use disorder, severe Stimulant (cocaine) use disorder, severe Cannabis use disorder, mild Alcohol use disorder, moderate - Initial Tx Plan for Active Psych & Medical Conditions Treatment Plan: 1. Monitor patient on unit for mood disorder, safety, alcohol and opiate withdrawal. 2. CIWA Q4hour monitoring w/awake for alcohol withdrawal. Utilize prn Ativan per CIWA protocol. Patient not presently scoring on CIWA. VSS. 4. Monitor on OOWS/SOWS for opiate withdrawal. Administer ordered bentyl, baclofen, ibuprofen, clonidine prn for withdrawal symptoms. 5. Admission H&P per drive away driver team. 6. Start Gabapentin 300mg TID, until 600mg TID can be verified with patient pharmacy. 7. Start Lexapro 10mg today to target anxiety/depression. Reviewed the risk/ benefit/SE profiles with patient who verbalized understanding and was agreeable to trial. - Factors that would help patient function - in a less restrictive setting. Factors: Alleviation of depression/anxiety/suicidal ideation. Detox/abstinence from substances. Connect patient with Dual IOP level of care.
--- NOTE | 2016-04-26 13:35 | History & Physical ---
General Information and HPI History of Present Illness: This young male with previous history of psychiatric admission is admitted again to the hospital because of increased depression and substance drug abuse. He does not have any specific physical complaints except for some vague chest pain on the left side where he pressedessed the chest wall to hard against some other object. His past history is only significant for previous psychiatric admission as well as gallbladder removal in [facility] when he claims he had a stone and pancreatitis and since then he has not had any problems. He claims he was given some Vicodin for his foot pain by his primary physician last week and he took all 20 tablets and 2 days that he was only supposed to take 3-4 in a day. There is no other ongoing medical problems. Allergies/Medications Allergies: Coded Allergies: NO KNOWN ALLERGIES (09/25/12) Home Med list Gabapentin 600 MG TABLET 1 TAB PO TID UNKNOWN (Reported) Hydrocodone/Acetaminophen (Vicodin 5-300 MG Tablet) 5 MG-300 MG TABLET 1 TAB PO Q4-6 PRN PAIN (Reported) Pantoprazole Sodium (Protonix) 20 MG TABLET.DR 1 TAB PO DAILY GI (Reported) Past History Travel History Traveled to [place] past 21 day No Medical History Neurological: NONE EENT: NONE Cardiovascular: NONE Respiratory: NONE Gastrointestinal: NONE Hepatic: NONE Renal: NONE Musculoskeletal: NONE Psychiatric: alcohol dependence, depression, insomnia, opioid dependence, substance abuse Endocrine: pancreatitis Blood Disorders: NONE Cancer(s): NONE History of MRSA: No History of VRE: No History of CDIFF: No Isolation History: Standard Influenza Vaccine: 02/02/16 Surgical History Surgical History: non-contributory Past Family/Social History Psychosocial History Where do you live? 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 EENTM: Denies: no symptoms. Cardiovascular: Reports: see HPI, chest pain. Denies: orthopena, palpitations, peripheral edema , syncope. Respiratory: Denies: no symptoms. GI: Denies: no symptoms. Genitourinary: Denies: no symptoms. Musculoskeletal: Denies: no symptoms, see HPI. Skin: Denies: no symptoms. Neurological/Psychological: Reports: see HPI, depressed, emotional problems. Hematologic/Endocrine: Denies: no symptoms. Immunologic/Allergic: Denies: no symptoms. Exam & Diagnostic Data Last 24 Hrs of Vital Signs/I&O Vital Signs Date Time Temp Pulse Resp B/P Pulse O2 O2 Flow FiO2 Ox Delivery Rate 04/26 0822 96.5 61 145/79 04/26 0816 96.5 61 145/79 04/26 0810 61 145/79 04/26 0517 76 126/74 04/26 0513 50 126/63 04/25 2303 92 136/75 04/25 2143 96.7 62 16 136/75 04/25 1944 97.5 60 18 149/66 98 Room Air 04/25 1647 97.5 80 20 130/70 98 Room Air Intake & Output 04/26 1600 04/26 0800 04/26 0000 Intake Total Output Total Balance Patient 240 lb Weight Physical Exam General Appearance Alert, Oriented X3, Cooperative, No Acute Distress Skin No Rashes, No Breakdown, No Significant Lesion HEENT Atraumatic, PERRLA, EOMI, Mucous Membr. moist/pink Neck Supple, No JVD, No thryomegaly Lymphatic Cervical nl Cardiovascular Regular Rate, Normal S1, Normal S2, No Murmurs, Gallops, Rubs Lungs Clear to Auscultation, Normal Air Movement, chest wall slightly tender fifth rib on the lateral side of nipple. Abdomen Normal Bowel Sounds, Soft, No Tenderness, No Hepatospenomegaly, No Masses Neurological Exam Findings: Normal Gait, Normal Speech, Strength at 5/5 X4 Ext, Normal Tone, Cranial Nerves 3-12 NL, Reflexes 2+ Cranial Nerves II through XII: Within normal limits in all intact Extremities No Clubbing, No Cyanosis, No Edema, Normal Pulses Assessment/Plan Assessment: This young male is admitted because of increased depression as well as drug abuse and polysubstance abuse. He has some chest pain on the left side due to some strain of his rib which is only musculoskeletal while here his cardiac and pulmonary exams are normal. And he does not have any acute cardiopulmonary process. He will be treated per psychiatric recommendation and does not need any medical workup or treatment his CBC as well as electrolytes and liver functions are normal and the urine toxicology screen is positive for cocaine morphine and cannabis. As Ranked By This Provider Problem List: 1. Depression 2. Polysubstance (excluding opioids) dependence Miscellaneous Miscellaneous Documentation Attending Case Discussed With: ROJELIO NI,DIANDRA Primary Care Physician: UNKNOWN Patient sees these Specialists none Level of Patient Care: STEVEN Hernandez Attending MD Review Statement Attending Statement Attending MD Statement: examined this patient, reviewed EMR data (avail), discussed with nursing Attending Assessment/Plan: This young male is admitted for increased depression and drug abuse. He does not have any acute cardiopulmonary process but has some skeletal pain on the left chest wall for which we will use ibuprofen 400 mg 3 times a day as needed after meals and topical BenGay or other analgesic rub. No need for any other workup or treatment at this time
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
--- NOTE | 2016-04-26 14:50 | SOCIAL WORKER TX PLAN PSYCH ---
Treatment Plan - Please Document: - Evidence that there is ongoing collaboration between - the patient and the interdisciplinary team, - including the patient's active participation and - responsibility for engaging in the treatment regimen, - and that the treatment plan is individualized and - relevant to the patient's conditions. - Treatment plan should reflect documentation indicating - that all active therapeutic efforts are included. 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 Physical Limitations (Interventions): None Patient Identified Trmt Goals: "I want to get my life on track" Discharge Plan: [facility] residential rehab Problem/Goals #1 Problem #1: depression Goal (Short Term): patient will attend 75% of groups Goal (Nursing Home): Patient will be able to verbalize future oriented goals Interventions: Patient will be offered medication management with the CORRUGATOR HELPER, groups on symptom management, coping skills, focus group, goals group, accupuncture, art therapy. Risk Assessor will help patient reframe negative thoughts, discuss small goals. Coordinate with [facility] and [facility] [place]. Modalities: group/ individual Problem/Goals #2 Problem #2: polysubstance abuse Goal (Short Term): patient will explore the pros and cons to use Goal (Nursing Home): patient will identify goals and how substance use impacts goals Interventions: Patient will be offered AA, relapse prevention, symptom management group, goals group. fairing worker will help reframe negative thinking and work with patient on feelings surrounding relapse Modalities: group/individual DSM5/PS Stressors/Medical Prob Diagnosis' (DSM 5, Stressors, Medical): F32.9 Unspecified Depressive Disorder F11.20 Opioid Use Disorder, Moderate F14.10 Stimulant (Cocaine) Use Disorder, Severe F12.10 Cannabis Use Disorder F10.20 Alcohol Use Disorder, Moderate Current GAF: 25 Treatment Team - Responsibilities of members of the treatment team include: - Medication Management- MD or CORRUGATOR HELPER - Medication Administration and Monitoring- Nurse - Group Therapy- Occupational Therapist - 1:1 Therapy,Disch Planning,family involvement-Risk Assessor
--- NOTE | 2016-04-26 15:08 | NUR ---
PT WAS IN HIS ROOM FOR MOST OF THE DAY. HE DID PARTICIPATE IN PLANNING MEETING AND MADE A GOAL TO TALK TO THE DOCTOR ABOUT HIS MEDICATIONS. PT WAS COOPERATIVE ABOUT GETTING HIS VITALS WHICH WERE GOOD. PT REPORTS FEELING ANXIOUS, WHEN ASKED HE STATED A LOT OF STUFF GOING ON. WHEN ASKED IF PT FEELS LIKE HARMING HIMSELF, PT DENIES.
--- NOTE | 2016-04-26 21:47 | NUR ---
PT IS CALM, COOPERATIVE WITH STAFF AND PEERS, AND COMPLIANT WITH UNIT RULES. PT HAS BEEN IN [place], SOCIALIZING WITH OTHERS. PT MOOD IS STABLE, AFFECT IS FULL RANGE, COMMUNCIATION IS NORMAL, AND APPETITE IS NORMAL. PT DNIES SI AT THIS TIME.
[2016-04-27] VITALS (9 sets, daily range): BP systolic 130–150; BP diastolic 72–74
--- NOTE | 2016-04-27 07:32 | NUR ---
0645 PT FELL TO FLOOR IN KITCHEN WHILE GETTING OJ. THIS RN HAD DRAWN PT. BLOOD 10 MINUTES PRIOR PT. STATED "I DO NOT DO WELL WITH NEEDLES AND I PASSED OUT" PT. DENIES HITTING HEAD B/P 148/74 HR 53 TEMP 96.2 RESP 20 PERRLA BLOOD SUGAR 104. RAPID RESPONSE WAS CALLED AND PT. ASSESSED. LABS SENT DR. MURRAY TO BE NOTIFIED BY DR. SERRANO AND NURSING TO FOLLOW UP.
--- NOTE | 2016-04-27 13:30 | NUR ---
PT IS PRESENT ON THE UNIT, MOOD STABLE WITH FULL RANGE AFFECT, CALM, PLEASANT AND COOPERATIVE, VITAL SIGNS STABLE, POOR SLEEP, ATTENDING GROUPS.
--- NOTE | 2016-04-27 14:05 | CP SOUTH PROGRESS NOTE PSYCH ---
Psych (Inpt) Progress Note Progress Note Include the following elements, when applicable: Involvement in the active treatment of the patient with behavioral observations of the patient and the patient's response to the treatment. Review of the ongoing treatment process in the context of the treatment plan. Indication of how multi-disciplinary staff members are carrying out the treatment plan. Plans for future interventions and recommendations for revision of the treatment plan. Liaison with other physicians/providers. Progress Note: Medication list reviewed. Case and treatment plan discussed in team meeting. Staff reports that the patient appears despondent/depressed. Denying SI. Back with girlfriend. EKG was normal. Has a low profile on the unit. On parole. Patient seen at 11:54 a.m. Affect is calm and depressed. Feels "like sh-t, depressed. Feel like I get no energy. Feel like sh-t." I commented that patient could be having a withdrawal syndrome from cocaine, but he denies it, stating that his mood was poor, even before the cocaine use. Reports numerous stressors. States that "special parole" put a no-contact stipulation on him, such that he cannot see his girlfriend. Reports this was difficult for him, especially over the holidays. States that he gets badly depressed, particularly around the holidays. Uses foul language. Reports he has minimal work. 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 States peace officer wants him to go to an inpatient rehab. Sad: probably 12/11. Anxiety: porbably 8-12/11. Reports his anxiety was bad last night and he could hardly sleep. Feels hopeless, helpless, worthless and guilty. Last had SI on 04/25/16 at 9 a.m. Gives a safety promise for here. Wants help. Denies HI, AH, VH and PI. States appetite seems to be alight. Reports upset stomach from Motrin and being off his PPI. He agrees to change from NSAID to Tylenol prn. Energy: very poor. Reports tolerating Lexapro well, thus far. Wants Neurontin restored to 600 mg t.i.d., which I have ordered. I have also added Neurontin 300 mg q12h prn. Dislikes trazodone, as it causes him a hangover; I have discontinued trazodone. IMPRESSION: Slow progress. Continue present treatment plan. Continue to monitor for safety and opioid withdrawal. PPI Prilosec ordered to substitute for Protonix.
--- NOTE | 2016-04-27 16:07 | SOCIAL WORKER PROG NOTE PSYCH ---
Social Work Progress Note Progress Note Gary reports he was having a difficult day, feeling down on himself and having alot of negative self-talk. Tried to talk about reframing thoughts and picking a positive mantra to repeat. Encouraged to focus on present and not ruminate about what was happening as it's not helpful. Reports 8 out of 10 for depression (10 being worst). States he had thoughts this morning that he'd "rather be ". More of a passive SI, versus an active plan. Wants to get himself feeling better again. Worried about having to go to an inpatient rehab. States this is what officer Grisel wants him to do. I told him that I left a couple of messages but hadn't heard back from him. Gary was able to rope cleaner Grisel and then got him to call me immediately after. Officer Grisel stated that IOP is not an option for Gary and that he is either going to do inpatient rehab or be incarcerated. He said he already did a referral for APT in [place] and that a phone screening just needed to be done. [facility] has contracted beds there and he said there was no wait list, it was just a matter of doing the screening and seeing if he fits their admission criteria. He said Geno Yeh is the person who should be calling to complete screening. He didn't have her number, but shared that he gave her the hospital's contact info through an email. Gary was given this information after this discussion.
--- NOTE | 2016-04-27 21:49 | NUR ---
PT IS VISIBLE ON UNIT, SOCIAL WITH PEERS AND STAFF. COOPERATIVE AND COMPLIANT. ATTENDED WRAP UP MEETING. NO COMPLAINTS OR SI REPORTED. PT HAS A STABLE MOOD AND FULL RANGE AFFECT.
[2016-04-28] VITALS (8 sets, daily range): BP systolic 128–144; BP diastolic 72–88
--- NOTE | 2016-04-28 11:25 | CP SOUTH PROGRESS NOTE PSYCH ---
Psych (Inpt) Progress Note Progress Note Include the following elements, when applicable: Involvement in the active treatment of the patient with behavioral observations of the patient and the patient's response to the treatment. Review of the ongoing treatment process in the context of the treatment plan. Indication of how multi-disciplinary staff members are carrying out the treatment plan. Plans for future interventions and recommendations for revision of the treatment plan. Liaison with other physicians/providers. Progress Note: [I discussed this patient's progress to date, current mental status, treatment process in the context of the treatment plan, and discharge planning with staff/ team in the daily morning inpatient team meeting. I also met with the patient myself in individual session.] SUBJECTIVE: "I feel down." OBJECTIVE: Vital Signs Date Time Temp Pulse Resp B/P Pulse O2 O2 Flow FiO2 Ox Delivery Rate 04/28 0826 97.1 61 141/77 04/28 0809 61 141/77 04/28 0757 97.1 61 141/77 04/27 2029 97.6 64 150/73 04/27 202 97.6 64 150/73 04/27 1847 72 153/65 04/27 1559 60 130/72 04/27 1540 60 130/72 04/27 1225 55 141/74 04/27 1221 55 141 ASSESSMENT: Chart, progress notes, medication list, labs, and VS reviewed. On encounter today, patient presented A&Ox3. Speech was normal in rate, tone and volume. Affect was constricted, mood was "down." Reported low energy. He perseverated on the many problems in his life: "special parole," "limited contact with girlfriend," "not having a stable job," and "inability to concentrate, complete tasks." Reported that during high school he had been trialed on a psychostimulant for ADHD (i.e. Ritalin, Adderall) which yielded good effect. Reviewed with patient that given hx of PSA, stimulant medication would not be indicated for treating underlying inattention. Also educated patient on symptoms of polysubstance withdrawal, and poor concentration/ inattention potentially being secondary to this. Patient verbalized understanding of education. Patient reported feeling hopeless, helpless, and worthless. He reported depression of 8/10 (10 being the worst) and anxiety of 8/10 (10 being the worst) in the context of psychosocial stressors. He reported sleep and appetite as good. He denied active suicidal ideation, and reported passive wishes of not wanting to be alive. Denied plans and intent, and contracted for safety on unit. He denied auditory and visual hallucinations. There was no evidence of underlying psychotic process, paranoia or delusions. Cognition was grossly intact. He reported tolerating Lexapro 10mg well and denied untoward medication effects. Reviewed with patient option of trialing Wellbutrin for inattention/poor concentration, however explained that this could increase anxiety. Patient reported being on Wellbutrin in the past (up to 100mg), which did not make him feel anxious. Reviewed the risk/benfit/SE profiles of WBU with the patient, who verbalized understanding of education and expressed agreement to trial during hospital course. Will consider adding Wellbutrin. PLAN: 1. Increase Lexapro to 20mg tomorrow morning to further target anxiety/ depression. 2. Consider adding Wellbutrin during hospital course to target inattention/poor concentration if symptoms do not clear upon stabilization of polysubstance detox. 3. Continue monitoring the patient on unit for safety, mood and polysubstance withdrawal. 4. Dispo planning per primary team. Multivitamins 1 TAB 0800 04/26 1200 AC 04/28 PO 0806 Nicotine 21 MG DAILY 04/25 2300 04/28 TOP 0806 Nicotine 2 MG Q1H PRN 04/25 2300 AC 04/26 PO 1831 Omeprazole 40 MG DAILY AC 04/27 1202 AC 04/28 PO 0703 Trazodone HCl 50 MG AT BEDTIME 04/25 2230 DC PO Vital Signs Date Time Temp Pulse Resp B/P Pulse O2 O2 Flow FiO2 Ox Delivery Rate 04/28 0826 97.1 61 141/77 04/28 0809 61 141/77 04/28 0757 97.1 61 14177 04/27 2030 97.6 64 150/73 04/27 2024 97.6 64 150/73 04/27 1847 72 153/65 04/27 1559 60 130/72 04/27 1540 60 130/72 04/27 1225 55 141/74 04/27 1221 55 [id number] ASSESSMENT: Chart, progress notes, medication list, labs, and VS reviewed. PLAN:
--- NOTE | 2016-04-28 13:44 | NUR ---
PT IS COMPLIANT AND COOPEATIVE. MOOD IS STABLE WITH A CONSTRICTED AFFECT. PT DENIES SI AT THIS TIME, C/O CHRONIC PAIN. NO S/S OF DETOX NOTED OR REPORTED, NO SCORING ON CIWA. PT IS PRESENT ON THE UNIT AND HAS SOME INTERACTION WITH PEERS AND STAFF. PT NOTED TO BE WITHDRAWN IN BED DURING GROUPS. PT HAS REFUSED GROUPS TODAY. VITALS ARE STABLE, APPETITE IS GOOD.
--- NOTE | 2016-04-28 13:44 | SOCIAL WORKER PROG NOTE PSYCH ---
Social Work Progress Note Progress Note Called Geno Yeh at [facility] to see about scheduling the phone screening for Gary. We set it up for 1pm today [phone]. She asked for additional clinical to be faxed there at [phone]. She said a decision should be made today in regards to whether he would be accepted or not. She said if he were to be accepted he would have to get to [facility] by 11am tomorrow for admission. She said that she will extrusion process operator Grisel about acceptance and then he can plan the transition with us. Gary was informed about the process and called at 1pm to do his screening. He thought it went well and stated he will wait to hear whether he has been accepted. Received a call from Officer Grisel who informed me that Gary will be accepted to [facility], but they don't want to take him until Monday. They had some concerns about his mental health and wanted him to remain in the hospital a few more days. Officer Grisel will pick him up at 10:30 Monday morning. Gary was informed of the plan. States he is continuing to have a down day. Today was his girlfriend's birthday and he is upset that he hasn't been able to see her.
--- NOTE | 2016-04-28 23:22 | NUR ---
PT IS STABLE WITH FULL RANGE OF AFFECT. PT IS VISIBLE WITHIN THE COMMUNITY AND INTERACTING WITH PEERS/STAFF. PT WENT TO WRAP UP AND REPORTED HAVING A BAD DAY. PT DID SAY THAT HE WAS ABLE TO GET INTO [facility]T HOUSING. VS ARE STABLLE AND DENIES ANY SI/HI TO THIS MHW.
[2016-04-29] VITALS (8 sets, daily range): BP systolic 139–147; BP diastolic 70–93
--- NOTE | 2016-04-29 04:33 | NUR ---
SLEPT WELL WITH NO COMPLAINTS OFFERED.
--- NOTE | 2016-04-29 12:57 | SOCIAL WORKER PROG NOTE PSYCH ---
Social Work Progress Note Progress Note Called [facility] and left a message with Geno Yeh to see if Gary will require medication refills or if a prescriber will take care of his medications while he is there. Attempted to speak with Gary late morning. He was in bed and skipped group. Stated that he wasn't feeling well and his stomach was bothering him. Reported he was just trying to rest. Didn't sleep well last night. May have gotten 2-3 hours of sleep per his report. Asked if we could speak later in the day. Spoke with Gary later on, he stated that he continued to have depressing thoughts and that he is just down on himself. He feels this is a set back and he wants to be able to move forward with his life. Encouraged him to have larger goals, but to focus on the smaller ones each day.
--- NOTE | 2016-04-29 13:08 | NUR ---
PT WAS NOT VISIBLE MUCH IN THE [place] TODAY. PT DID NOT ATTEND NEITHER PLANNING MEETING OR FOCUS GROUP, INSTEAD PT STAYED IN HIS ROOM AND SLEPT. WHEN IN THE [place] PT HAS INTERACTING WITH HIS PEERS, AND COOPERATIVE WITH STAFF. PT DENIES THOUGHTS OF SELF HARM WHEN ASKED.
--- NOTE | 2016-04-29 13:35 | CP SOUTH PROGRESS NOTE PSYCH ---
Psych (Inpt) Progress Note Progress Note Include the following elements, when applicable: Involvement in the active treatment of the patient with behavioral observations of the patient and the patient's response to the treatment. Review of the ongoing treatment process in the context of the treatment plan. Indication of how multi-disciplinary staff members are carrying out the treatment plan. Plans for future interventions and recommendations for revision of the treatment plan. Liaison with other physicians/providers. Progress Note: [I discussed this patient's progress to date, current mental status, treatment process in the context of the treatment plan, and discharge planning with staff/ team in the daily morning inpatient team meeting. I also met with the patient myself in individual session.] SUBJECTIVE: "I feel a little less anxious today." OBJECTIVE: Current Medications Sig/Ad Start time Last Medication Dose Route Stop Time Status Admin Acetaminophen 650 MG Q6P PRN 04/27 1215 AC PO Baclofen 10 MG Q6-PRN PRN 04/26 1200 AC 04/29 PO 0903 Clonidine 0.1 MG 0800,2199 PRN 04/29 1999 AC PO Clonidine 0.1 MG .STK-MED ONE 04/28 1945 DC PO 04/28 1946 Clonidine 0.1 MG TID PRN 04/26 1345 DC 04/29 PO 0903 Dicyclomine HCl 20 MG Q6-PRN PRN 04/26 1215 AC PO Escitalopram Oxalate 20 MG 04/29 0800 AC 04/29 PO 0806 Gabapentin 600 MG 0800,1400,04/27 1400 04/29 PO 0807 Gabapentin 300 MG Q12P PRN 04/27 1215 AC 04/28 PO 1206 Guaifenesin/ 10 ML Q6P PRN 04/26 2045 AC 04/29 Dextromethorphan PO 0807 Hydroxyzine HCl 50 MG .STK-MED ONE 04/28 2333 DC PO 04/28 2334 Hydroxyzine HCl 50 MG Q6-PRN PRN 04/26 1215 AC 04/28 PO 2338 Lorazepam 1 MG Q1 PRN 04/25 2145 AC PO Lorazepam 2 MG Q1 NEEDED PRN 04/25 214 AC PO Melatonin 5 MG 04/29 2200 UNVr PO Methyl Salicylate 1 WILLIAM TID PRN 04/26 1400 AC TOP Multivitamins 1 TAB 04/26 1200 AC 04/29 PO 0807 Nicotine 21 MG DAILY 04/25 2300 AC 04/29 TOP 0807 Nicotine 2 MG Q1H PRN 04/25 2300 04/26 PO 1831 Omeprazole 40 MG DAILY 04/27 1202 AC 04/29 PO 0621 Vital Signs Date Time Temp Pulse Resp B/P Pulse O2 O2 Flow FiO2 Ox Delivery Rate 04/29 1230 61 139/85 04/29 1224 61 139/85 04/29 0903 63 142/70 04/29 0755 96.8 63 142/70 04/29 0753 96.8 63 142/70 04/28 2006 97.8 70 144/74 04/28 1950 70 144/74 04/28 1941 97.8 70 144/74 04/28 1557 97.6 75 128/88 04/28 1556 97.6 75 128/ Lab TSH &T3 &Free T4 Intrp 3.530 uIU/mL 04/29/16 0623 ASSESSMENT: Chart, VS, CIWA, medication list, labs, progress notes reviewed. Met with the patient at 13:25 today. Presented A&Ox4. Speech was normal in rate, tone and volume. Affect appeared constricted, mood was "egh, ok." Appeared depressed, patient spoke of how he wants to try to get his life back on track. Reported wanting to stay sober, attend nightly NA meetings, resume work, and make healthy choices. Patient reported feeling hopeless and helpless in regards to attending to the above mentioned. Reported how being on "special parole" serves as a barrier to resuming the above. Patient exhibited some insight into "special parole" being a temporary situation and needing to work with their recommendations in order to complete parole. He reported feelings of guilt and worthlessness for being hospitalized, however also acknowledged that he needed help with substance abuse and depression. He reported depression of 7/10 (10 being the worst), and reported anxiety of 4/ 10 (10 being the worst). He denied passive and active suicidal ideation, plans and intent. He denied homicidal ideation. He reported sleeping poorly last night , for unclear reasons. Patient opposed to trials of Trazodone and Seroquel for insomnia given past poor efficacy. Was agreeable to start Melatonin. Reviewed the risk/benefit/SE profiles of Melatonin with the patient, who verbalized understanding of education and was agreeable to trial. He reported having a good appetite. Reported energy level as fair. Cognition was grossly intact. Thought process was linear and goal-directed. Thought content was appropriate. He denied auditory and visual hallucinations. There was no evidence of paranoia or delusions. Patient requested HIV testing, given history of unpretected sex with multiple partners. HIV testing was reviewed with patient, who gave verbal consent for HIV testing, which was ordered. Patient reported tolerating increase in Lexapro from 10mg to 20mg daily well, and denied untoward medication effects. Patient agreeable to continue taking. VSS. No overt evidence of opiate or alcohol withdrawal. Patient not scoring on CIWA. PLAN: 1. Continue current medications. 2. Add-on HIV testing ordered, per patient request. 3. Start Melatonin 5mg at HS for insomnia. 4. Dispo planning per primary team.
--- NOTE | 2016-04-29 21:27 | NUR ---
PT IS STABLE WITH FULL RANGE OF AFFECT. PT CAN BE LOUD AT TIMES BUT DOES NOT REQUIRE REDIRECTION. VISIBLE WITHIN THE COMMUNITY INTERACTING WITH PEERS/STAFF. SITTING IN THE LOUNGE WATCHING TV. PT IS POLITE AND COMPLIANT. VS ARE STABLE, DENIES ANY SI/HI TO THIS MHW.
[2016-04-30] VITALS (7 sets, daily range): BP systolic 135–151; BP diastolic 73–87
--- NOTE | 2016-04-30 13:52 | NUR ---
PT HAS BEEN ISOLATIVE AND SLEEPING IN BED MAJORITY OF SHIFT. OOB BED FOR MEALS AND VITALS. PT PRESENT MORE ON UNIT AFTER LUNCH- INTERACTING WITH PEERS AND STAFF. PT NOTED TO BE USING FOUL LANGUAGE AT TIMES AND CAN BECOME IRRITABLE WHEN IT COMES TO STAFF REQUESTS/RULE SETTING. PT HAS REFUSED GROUPS. PT DENIES SI AT THIS TIME. NO S/S OF DETOX NOTED OR REPORTED, NO SCORING ON CIWA. VITALS ARE STABLE, APPETITE IS GOOD.
--- NOTE | 2016-04-30 16:17 | CP SOUTH PROGRESS NOTE PSYCH ---
Psych (Inpt) Progress Note Progress Note Include the following elements, when applicable: Involvement in the active treatment of the patient with behavioral observations of the patient and the patient's response to the treatment. Review of the ongoing treatment process in the context of the treatment plan. Indication of how multi-disciplinary staff members are carrying out the treatment plan. Plans for future interventions and recommendations for revision of the treatment plan. Liaison with other physicians/providers. Progress Note: No acute issues apart from pain, stated that neurontin helps w/ nerve pain and would like increased dosage. Feels anxious at times; no other major complaints. Stated that he is sleeping poorly b/c of the beds. Appetite is good. Looking forward to getting to a program on discharge this week. MSE: middle aged man, well groomed, calm and cooperative. No psychomotor/ agitation. Mood is neutral, affect full and reactive. Fair eye contact. Well related. Thought process goal directed. No overt thought content abnormalities evident. No suicidal thoughts. No AH/VH. Insight fair, judgment adequate. Risk associated w/ significant pain, drug use hx, medical problems, depressive hx. Manage w/ education, med titration, mileu therapy, groups. A: 40 y/o man w/ hx depressive sx, admitted w/ suicidal ideation, plan to overdose w/ drugs. Utox + cocaine, opiates, cannabis. Improving clinically. HIV test neg. Plan: continue current plan of care; increased neurontin. Will consider starting wellbutrin for adjunct depressive sx and inattention sx. c/o foot pain, will see if can have hospitalist eval for bone spur or other cause.
--- NOTE | 2016-04-30 22:50 | NUR ---
PT IS CALM AND COMPLIANT WITH UNIT RULES. PT IS COOPERATIVE WITH PEERS AND INTERACTING WELL. PT MOOD IS STABLE, AFFECT IS FULL RANGE, COMMUNICATION IS NORMAL, AND APPETITE IS NORMAL. PT DENIES SI AT THIS TIME.
[2016-05-01] VITALS (7 sets, daily range): BP systolic 129–151; BP diastolic 75–84
--- NOTE | 2016-05-01 05:43 | NUR ---
PATIENT SLEPT ALL NIGHT.
--- NOTE | 2016-05-01 10:34 | CP SOUTH PROGRESS NOTE PSYCH ---
Psych (Inpt) Progress Note Progress Note Include the following elements, when applicable: Involvement in the active treatment of the patient with behavioral observations of the patient and the patient's response to the treatment. Review of the ongoing treatment process in the context of the treatment plan. Indication of how multi-disciplinary staff members are carrying out the treatment plan. Plans for future interventions and recommendations for revision of the treatment plan. Liaison with other physicians/providers. Progress Note: Stated that he is anxious about going to outpatient program. Concerned about less erection in the morning w/ lexapro and despite education has refused to take it explained to him that most AE will improve in time, however he is very concerned and does not want to give it a trial. Stated that he needs something like concerta for his ADHD. Explained to him that would not prescribe stimulant as would increase his anxiety, that would need to maintain sobriety, and would need to have more consistent documentation of AHDH sx from outpatient provider. He accepted this feedback. We discussed wellbutrin again, that it might make him more edgy and agitated, but he stated that he had the 100mg dose in the past, and had discussed this w/ provider here earlier, and would want to be re-started on the dosage. Explained that would only have a low dosage currently, and would need follow up on discharge, he was agreeable. MSE: middle aged man, well groomed, calm and cooperative. No psychomotor/ agitation evident. No movement d/o noted. Mood is good, affect if full. Eye contact is good. He is well related. Thought process goal is directed. No overt thought content abnormalities evident. No suicidal thoughts. No AH/VH. Insight fair, judgment adequate. Risk associated w/ significant pain, drug use hx, medical problems, depressive hx. Manage w/ education, med titration, mileu therapy, groups. A: 40 y/o man w/ hx depressive sx, admitted w/ suicidal ideation, plan to overdose w/ drugs. Utox + cocaine, opiates, cannabis. Improving clinically. Plan: continue current plan of care; does not want lexapro; despite education. Will re-start wellbutrin SR 50mg twice daily as not to exacerbate self reported anxiety; however suspect that he will not have any problems w/ the medication. Discussed AE including risk of lowering sz threshold, concern w/ other drug relapse; temporary increased agitation/anxiety and headaches. He was agreeable. Can follow up about his foot pain w/ PCP or feed mixer this week if he is not discharged, not concerned w/ it now.
--- NOTE | 2016-05-01 14:36 | NUR ---
PT HAS BEEN CALM AND COOPERATIVE THIS SHIFT. HE IS TAKING HIS MEDS AND WHEN ASKED HE DENIED ANY SUICIDAL THOUGHTS. HE EXPECTS D/C TOMORROW
--- NOTE | 2016-05-01 21:41 | NUR ---
PT IS VISIBLE ON UNIT, SOCIAL WITH PEERS AND WATCHING TV. ATTENDED WRAP UP MEETING AND WAS DISRUPTIVE. COOPERATIVE AND COMPLIANT. NO SI REPORTED. PT HAS A STABLE MOOD AND IRRITABLE AFFECT.
--- NOTE | 2016-05-02 08:11 | CP SOUTH PROGRESS NOTE PSYCH ---
Psych (Inpt) Progress Note Progress Note Include the following elements, when applicable: Involvement in the active treatment of the patient with behavioral observations of the patient and the patient's response to the treatment. Review of the ongoing treatment process in the context of the treatment plan. Indication of how multi-disciplinary staff members are carrying out the treatment plan. Plans for future interventions and recommendations for revision of the treatment plan. Liaison with other physicians/providers. Progress Note: [I discussed this patient's progress to date, current mental status, treatment process in the context of the treatment plan, and discharge planning with staff/ team in the daily morning inpatient team meeting. I also met with the patient myself in individual session.] SUBJECTIVE: "I'm ok." OBJECTIVE: Current Medications Sig/Ad Start time Last Medication Dose Route Stop Time Status Admin Acetaminophen 650 MG Q6P PRN 04/27 1215 AC PO Baclofen 10 MG Q6-PRN PRN 04/26 1200 AC 05/01 PO 1950 Bupropion HCl 50 MG 0800 & 1700 05/01 1700 AC 05/01 PO 1705 Bupropion HCl 50 MG ONCE ONE 05/01 1030 DC 05/01 PO 05/01 1031 1115 Clonidine 0.1 MG DAILY NEEDED PRN 05/02 0800 AC PO Clonidine 0.1 MG 0800,2200 PRN 04/29 1999 DC 05/01 PO 2152 Dicyclomine HCl 20 MG Q6-PRN PRN 04/26 1215 AC PO Escitalopram Oxalate 20 MG 0804/29 0800 DC 04/30 PO 0829 Gabapentin 300 MG .STK-MED ONE 05/01 2147 DC PO 05/01 2148 Gabapentin 800 MG 0800,1400,04/30 PO 1950 Gabapentin 300 MG Q12P PRN 04/27 1215 AC 05/01 PO 2152 Guaifenesin 10 ML .STK-MED ONE 05/01 1112 DC PO 05/01 1113 Guaifenesin/ 10 ML Q6P PRN 04/26 2045 05/01 Dextromethorphan PO 1706 Hydroxyzine HCl 50 MG Q6-PRN PRN 04/26 1215 AC 05/01 PO 1950 Lorazepam 1 MG Q1 PRN 04/25 2145 AC PO Lorazepam 2 MG Q1 NEEDED PRN 04/25 2145 AC PO Melatonin 5 MG 04/29 2200 AC 05/01 PO 2151 Methyl Salicylate 1 WILLIAM TID PRN 04/26 1400 AC TOP Multivitamins 1 TAB 0804/26 1200 AC 05/01 PO 0826 Nicotine 21 MG DAILY 04/25 2300 AC 05/01 TOP 0826 Nicotine 2 MG Q1H PRN 04/25 2300 AC 04/26 PO 1831 Omeprazole 40 MG DAILY AC 04/27 1202 AC 05/02 PO 0708 ASSESSMENT: Chart, progress note, VS, medication list, and labs reviewed. Met with the patient today, on the date of discharge. He presented alert and oriented to person, place, time and situation. Speech was normal in rate, tone and volume. Affect was constricted. Eye contact was appropriate. He reported tolerating switch from Lexapro 20mg to Wellbutrin 50mg BID over the weekend well to target symptoms of inattention and depression. He denied untoward medication effects. He reported depression of 5/10 (10 being the worst) and anxiety of 5/10 (10 being the worst). He denied feeling worthless and guilty. He reported some feelings of helplessness and hopelessness. He denied cravings or urges to use alcohol and illicit drugs. He was future oriented to resume work, complete "special parole," and abstain from all substances. He denied passive and active suicidal ideation, plans and intent. He denied homicidal ideation. He stated and also believed he will not harm himself or others. He identified protective factors of "my family" and "my girlfriend." He reported his sleep and appetite were fair. He reported his energy level as improving. There was no evidence of underlying psychotic process, paranoia or delusions. He denied auditory and visual hallucinations. Thought process was organized and goal-directed. Thought content was appropriate. Cognition was grossly intact. He reported tolerating all medications well and denied untoward medication effects. He reported feeling safe and ready for discharge. Medication education on Wellbutrin was reviewed again with the patient, including the risks of combined use with alcohol and potential for lowering seizure threshold. Patient denied seizure history, verbalized understanding of medication education. Patient again verbalized motivation to abstain from alcohol and other illicit substance use. PLAN: 1. Patient to discharge into the care of Sheet Pile Driver Operator Rupesh Recinos. 2. Patient to follow-up with [facility] today, will be brought there by radio officer. 3. Patient was advised to abstain from all substances, and attend AA/NA meetings , obtain a sponsor for support in sobriety. 4. Patient was offered Smoking cessation program for assistance with smoking cessation, however declined program. 5. All discharge prescriptions were called into Outpatient Pharmacy and filled. Nursing picked-up prescriptions and patient was provided with them on discharge. 6. Patient was advised that in the event of an emergency, to call 911/go to nearest emergency department. Patient verbalized understanding of instructions.
--- NOTE | 2016-05-02 08:21 | NUR ---
PT IS SCHEDULED FOR D/C TO [facility]. HE REPORTS AND DEMONSTRATES IMPROVEMENT IN BHIS MOOD AND ABILITY TO FUNCTION. HE DENIES ANY THOUGHTS OF SUICIDE OR SELF HARM. HE REPORTS NO S/S WITHDRAWAL. HE VERBALIZES A GOOD UNDERSTANDING OF HIS MED REGIME AND TREATMENT PLAN. PT IS GIVEN EDUCATION ON MANAGING DEPRESSION AND SUICIDE PREVENTION INFORMATION
[2016-05-02 08:30] VITALS: BP 135/73
[2016-05-02] MEDS ORDERED: PROTONIX20 M1 PO (08:56)
--- NOTE | 2016-05-02 09:10 | SOCIAL WORKER PROG NOTE PSYCH ---
Social Work Progress Note Progress Note Called [facility] this morning and was transferred to their medical staff. Asked if Gary should come with meds and how much? I was told that it may be over a couple of weeks before he sees someone so month's worth of meds would be the safest bet. They thought it would be best if he filled his meds here before leaving. Gary met with Aleksandra Hightower APRN and I this morning. He seemed worried about going to [facility], because he doesn't know what to expect. Wanted to know more about their mental health there. I told him that he will see a prescriber there within a few weeks and he would most likely be assigned a counselor. I told him that I didn't know alot about their program, but if he had specific questions he could call. He didn't feel that was necessary. He is sad about having to go to a program and feels it's a set back. Encouraged him to make small goals/ intentions for the day. Have hope that if he is doing well, maybe his PO will discharge him sooner rather than later. In the end he said he was safe to go and that he really had no choice. Gary had meds filled here at the pharmacy. special forces warrant officer Bradley picked him up at 10:45. Copies of W-10 and the Patient Health Summary were given to her to give to [facility].
[2016-05-02 09:41] VITALS: BP 135/73
[2016-05-02] MEDS ORDERED: NICOTINE PATCH1 EAC3 TOP (10:23)
[2016-05-02] MEDS ORDERED: GABAPENTIN400 M2 PO (10:24)
[2016-05-02] MEDS ORDERED: BUPROPION HCL100 M2 PO (10:25)
[2016-05-02] MEDS ORDERED: ONE DAILY MULT1 EAC2 PO (10:27)
[2016-05-02] MEDS ORDERED: MELATONIN5 M7 PO (10:27)
--- NOTE | 2016-05-02 10:37 | DISCHARGE SUMMARY REPORT-PSYCH ---
Visit Information Visit Dates/Diagnosis' Admission Date: 04/25/16 Discharge Date: 05/02/16 Reason for Admission: Suicidal ideation/opiate detox Psy Discharge Primary Diag: Unspecified Depressive Disorder Psy Discharge Secondary Diag: Unspecified anxiety disorder; Opioid use disorder, severe; Stimulant use disorder,severe; Alcohol use disorder, moderate; neuropathic pain Hospital Course Significant Lab Findings: Lab TSH &T3 &Free T4 Intrp 3.530 uIU/mL 04/29/16 0623 HIV 1&2 Ab Western Blot NONREACTIVE 04/29/16 0623 Urine Cannabis Screen 70.00 NG/ML H 04/25/16 1130 Urine Cocaine Screen > 1000 NG/ML H 04/25/16 1130 Urine Opiates Screen 2962.00 NG/ML H 04/25/16 1130 Course Complications: None. Consultations: The patient was seen for admission history and physical by Dr. Adarsh Lynn. Please see his note for additional information. Allergies: Coded Allergies: NO KNOWN ALLERGIES (09/25/12) Hospital Course/TX Response: The patient was monitored on the unit for safety, suicidal ideation, mood disorder and opiate and alcohol withdrawal. He participated in multimodal treatments on the unit. During the hospital course, the patient did not score on CIWA, or require prn Ativan per CIWA protocol for alcohol withdrawal. There was no evidence of alcohol withdrawal. He was additionally monitored on OOWS and SOWS for opiate withdrawal. He received prns clonidine and baclofen for opiate withdrawal symptoms of anxiety and muscle spasms, and successfully detoxed from opiates. The patient was started on Lexapro 10mg daily for depression/anxiety which was increased to 20mg daily. Although patient had tolerated this medication well, he became concerned about the potential for sexual side effects , and requested to discontinue this medication. Patient was switched from Lexapro 20mg daily to Wellbutrin Hcl 50mg twice a day for depression/anxiety. Patient reported tolerating this medication well and denied untoward medication effects. Patient was additionally started on Melatonin 5mg at bedtime for insomnia, with good effect; and Gabapentin was increased from 600mg three times a day to 800mg three times a day for anxiety/neuropathic pain. Patient reported tolerating all medications well, and denied untoward medication effects. During the course of hospitalization, the patient's mood and affect improved. Suicidal ideation remitted. Patient declined having family or friends involved in his inpatient treatment, or in discharge planning. The patient's surveillance sensor officer was involved in patient's discharge planning, and requested the patient be admitted to [facility] for further management of polysubstance abuse and psychiatric treatment. Patient was agreeable to recommendation, and received placement at [facility]. The patient was in favor of discharge plan. On the date of discharge, 05/02/16, the patient presented alert and oriented to person, place, time and situation. Speech was normal in rate, tone and volume. Affect was constricted. Eye contact was appropriate. He reported tolerating well the switch from Lexapro 20mg daily to Wellbutrin 50mg BID over the weekend to target symptoms of inattention and depression/anxiety. He denied untoward medication effects. He reported depression of 5/10 (10 being the worst) and anxiety of 5/10 (10 being the worst). He denied feeling worthless and guilty. He reported some feelings of helplessness and hopelessness. He denied cravings or urges to use alcohol and illicit drugs. He was future oriented to resume work, complete "special parole," and abstain from all substances. He denied passive and active suicidal ideation, plans and intent. He denied homicidal ideation. He stated and also believed he will not harm himself or others. He identified protective factors of "my family" and "my girlfriend." He reported his sleep and appetite were fair. He reported his energy level as improving. There was no evidence of underlying psychotic process, paranoia or delusions. He denied auditory and visual hallucinations. Thought process was organized and goal- directed. Thought content was appropriate. Cognition was grossly intact. He reported tolerating all medications well and denied untoward medication effects. He reported feeling safe and ready for discharge. Medication education on Wellbutrin was reviewed again with the patient, including the risks of combined use with alcohol and potential for lowering the seizure threshold. Patient denied seizure history, verbalized understanding of medication education. Patient again verbalized motivation to abstain from alcohol and other illicit substance use, and appeared motivated to resume AA/NA meetings and obstain a sponsor for support in sobriety. Discharge HBIPS - Tobacco Use Treatment Offered Post DC Medications Offered: Script Given-See Med List Post DC Tobacco Treatment Plan: Refused Tobcco Tx Pgm - EtOH/Drug Use D/O Treatment Offered Post DC Medications Offered: Ref Med EtOH/Drug Use D/O Post DC EtOH/SubAbuse TX Plan: Other SubAbuse/Dual Pgm Program Appt Date: 05/02/16 Program Appt Time: 1045 Metabolic Screening - Screen if on a Neuroleptic Medication - Metabolic screening should include: - Blood Pressure, BMI, Glucose or Hgb A1c, & a - Lipid profile from within the past 365 days. Metabolic Screening ([X]) Not Applicable, patient not on a neuroleptic. OR () Patient on a neuroleptic(s) . Enter below results for Glucose or Hemoglobin A1C, and lipid panel if obtained during the last 365 days. BMI: 30.800 Blood Pressure: 135/73 Laboratory Results (If applicable): n/a Discharge Instructions General Discharge Information Discharge Medications: Discharge Medications- (Dose, route, freq, indication): HOME MEDICATION LIST START taking these NEW Home Medications: Nicotine (Nicotine Dose: On the skin, DAILY for Qty: 28 Called in to Patch) 21 MG/24 HOUR 21 Milligram tobacco cessation Refills: 0 Pharm 1 PATCH.TD24 Last Taken:05/02/16 Time:0930 Gabapentin Dose: ORAL, 0800,1400,2000 for Qty: 84 Called in to (Gabapentin) 400 MG 800 Milligram anxiety/neuropathic pain Refills: 1 Pharm 1 CAPSULE Last Taken:05/02/16 Time:30 Bupropion HCl Dose: ORAL, 8am & 5pm for Qty: 56 Called in to (Bupropion HCl) 100 50 Milligram depression/anxiety Refills: 0 Pharm 1 MG TABLET Last Taken:05/02/16 Time:1015 Multivitamin (One Dose: ORAL, DAILY @8 AM for Qty: 30 Called in to Daily Multivitamin) 1 Tablet VITAMIN SUPPORT Refills: 0 Pharm 1 1 EACH TABLET Last Taken:05/02/16 Time:0930 Melatonin Dose: ORAL, 2200 for insomnia Qty: 30 Called in to (Melatonin) 5 MG 5 Milligram Last Taken:05/01/16 Refills: 0 Pharm 1 TABLET Time:2150 All above discharge prescriptions were called into Outpatient Pharmacy, filled and picked-up by nursing staff on 05/02/16, and provided to patient on discharge. CONTINUE taking these Home Medications: Pantoprazole Sodium Dose: ORAL, DAILY for GI Renewed (Protonix) 20 MG 1 Tablet Last Taken:05/02/16 Called in to TABLET.DR Time:0700 Pharm 1 STOP taking these DISCONTINUED Home Medications: Hydrocodone/Acetaminophen Dose: ORAL, EVERY 4-6 HOURS as needed (Vicodin 5-300 MG Tablet) 5 MG 1 Tablet for PAIN -300 MG TABLET Reason Stopped: Per Doctor Decision Multiple Neuroleptics: (X]) Not Applicable OR Document below three failed attempts at monotherapy, or a plan to taper to monotherapy, or augmentation of Clozapine. () Patient's Diet: Regular. Patient's Activity: No restrictions. DC Disposition: Patient picked-up by surveillance sensor officer and transported to [facility] in [place], [place]. Recommendations: The patient was advised to please take medications. He was advised to abstain from all substances, and to attend AA/NA meetings, and obtain a sponsor for support in sobriety. He was advised to engage in treatment at [facility], where he would be transported by his surveillance sensor officer post discharge from inpatient psychiatric hospitalization. He was advised that in the event of an emergency, to call 911/go to nearest emergency department. Patient verbalized understanding of all instructions. Referred To: [address] [id number] ([phone] *Patient was picked up from hospital today, 05/02/16, by surveillance sensor officer and brought to [facility]. Copies To: [facility]
== END 2016-05-02 10:55 | DRG 754 ==
LOC: ENRESERVTM → ENRESERVDT → ERH 10:48 → CP SOUTH 17:54 → ERHI 17:54 → ENPENDDIS 17:54 → CP SOUTH 20:11
PROVIDERS: Physician Assistant; ADMIT Psychiatry & Neurology Psychiatry
DX: F32.9 Major depressive disorder, single episode, unspecified (principal); F41.9 Anxiety disorder, unspecified; F11.20 Opioid dependence, uncomplicated; F15.20 Other stimulant dependence, uncomplicated; Z72.89 Other problems related to lifestyle; F10.20 Alcohol dependence, uncomplicated; M79.2 Neuralgia and neuritis, unspecified
CPT/HCPCS: 80307; 87389; 93005; 93010; G0480

== ENCOUNTER 2016-08-26 20:17 | Emergency (ER) | payer OTHER ==
[~2016-08-26] VITALS: Ht 188 cm; Wt 124.7 kg
[~2016-08-26 20:17] MED LIST: BUPROPION HCL100 M2 PO; GABAPENTIN400 M2 PO; GABAPENTIN600 M1 PO; MELATONIN5 M7 PO; NICOTINE PATCH1 EAC3 TOP; ONE DAILY MULT1 EAC2 PO; PROTONIX20 M1 PO; VICODIN 5-3001 EACH PO
--- NOTE | 2016-08-26 22:03 | ED GENERAL ADULT ---
History of Present Illness General Chief Complaint: General Adult Stated Complaint: MED REFILL Source: patient Exam Limitations: no limitations Vital Signs & Intake/Output Vital Signs & Intake/Output Vital Signs Date Time Temp Pulse Resp B/P B/P Pulse O2 O2 Flow FiO2 Mean Ox Delivery Rate 08/27 2227 98.0 66 18 148/70 98 Room Air 08/26 2208 Room Air 08/26 2102 98.2 65 18 157/73 98 Room Air ED Intake and Output 08/27 0000 08/26 1200 Intake Total 0 Output Total Balance 0 Intake, Oral 0 Patient 275 lb Weight Weight Reported by Patient Measurement Method Allergies Coded Allergies: NO KNOWN ALLERGIES (09/25/12) Reconcile Medications Bupropion HCl 100 MG TABLET 50 MG PO 0800 & 1700 depression/anxiety Bupropion HCl (Wellbutrin XL) 300 MG TAB.ER.24H 1 TAB PO QAM MOOD DISORDER Gabapentin 400 MG CAPSULE 800 MG PO 0800,1400,2000 anxiety/neuropathic pain Gabapentin 600 MG TABLET 2 TAB PO TID MOOD DISORDER Melatonin 5 MG TABLET 5 MG PO 2200 insomnia Multivitamin (One Daily Multivitamin) 1 EACH TABLET 1 TAB PO 0800 VITAMIN SUPPORT Nicotine (Nicotine Patch) 21 MG/24 HOUR PATCH.TD24 21 MG TOP DAILY tobacco cessation Pantoprazole Sodium (Protonix) 20 MG TABLET.DR 1 TAB PO DAILY GI (Reported) Pantoprazole Sodium (Protonix) 20 MG TABLET.DR 1 TAB PO DAILY GI Triage Note: PT TO ED REQUESTING MED REFILL. STATES NEEDS GABAPENTIN, TAKES 1200 MG TID. LAST HAD IT 3 DAYS AGO. STATES TAKES FOR HIS ANXIETY AND SCIATICA PAIN. Triage Nurses Notes Reviewed? yes Onset: Gradual Duration: constant Timing: recent history Severity: moderate Severity Numbers: 5 HPI: Patient is a 41-year-old male with a past medical history of neuropathy and chronic pain syndrome where he takes 1200 mg of gabapentin 3 times a day and Wellbutrin 1 time a day for his chronic symptoms where he states that he is in the process of moving where he lost the remaining bottle of gabapentin where he was requesting medication refills thereof. Patient denies any trauma denies any exacerbation of his pain and his only requesting medication refills where he will follow-up with his primary care right her next week. (IZABEL GABRIEL,JAXON) Past History Travel History Traveled to [place] past 21 day No Medical History Any Pertinent Medical History? see below for history Neurological: NONE EENT: NONE Cardiovascular: NONE Respiratory: NONE Gastrointestinal: NONE Hepatic: NONE Renal: NONE Musculoskeletal: sciatica Psychiatric: alcohol dependence, depression, insomnia, opioid dependence, substance abuse Endocrine: pancreatitis Blood Disorders: NONE Cancer(s): NONE History of MRSA: No History of VRE: No History of CDIFF: No Influenza Vaccine: 02/02/16 Surgical History Surgical History: non-contributory Psychosocial History Who do you live with Friend What is your primary language Ugandan Tobacco Use: Current Daily Use Daily Tobacco Use Amount/Type: => 5 Cigarettes daily ETOH Use: denies use Illicit Drug Use: denies illicit drug use Family History Hx Contributory? No (JAXON SY) Review of Systems Review of Systems Constitutional: Reports: no symptoms. EENTM: Reports: no symptoms. Respiratory: Reports: no symptoms. Cardiovascular: Reports: no symptoms. GI: Reports: no symptoms. Genitourinary: Reports: no symptoms. Musculoskeletal: Reports: see HPI. Skin: Reports: no symptoms. Neurological/Psychological: Reports: no symptoms. Hematologic/Endocrine: Reports: no symptoms. Immunologic/Allergic: Reports: no symptoms. All Other Systems: Reviewed and Negative (JAXON SY) Physical Exam Physical Exam General Appearance: no apparent distress, alert, comfortable Comments: Well-developed well-nourished no apparent distress. HEENT: Atraumatic, extraocular motion intact Neck: Supple, no lymphadenopathy Back: Nontender Respiratory: No respiratory distress Extremities: No edema, full range of motion Neuro: Alert and oriented x3 Psych: Mood affect normal, normal memory normal judgment. Core Measures ACS in differential dx? No CVA/TIA Diagnosis: No Severe Sepsis Present: No Septic Shock Present: No (JAXON SY) Progress Differential Diagnoses I considered the following diagnoses in my evaluation of the patient: [Chronic pain, medication refill, cellulitis,] Plan of Care: It was confirmed through medication reconciliation that patient does receive medications as stated in HPI Initial ED EKG: none (JAXON SY) Departure Departure Disposition: HOME OR SELF CARE Condition: Stable Clinical Impression Primary Impression: Medication refill Secondary Impressions: Chronic pain Referrals: UNKNOWN (PCP) Additional Instructions: As discussed begin the prescription of Gabapentin and Wellbutrin as directed for your symptoms. Prescriptions waiting at [facility] pharmacy. Follow up primary care doctor next week. If symptoms worsen return to emergency room Departure Forms: Customer Survey General Discharge Information Prescriptions: Current Visit Scripts Gabapentin 2 TAB PO TID #42 TAB Bupropion HCl (Wellbutrin XL) 1 TAB PO QAM #4 TAB (JAXON SY) PA/METAL MINE INSPECTOR Co-Sign Statement Statement: ED Attending supervision documentation- [] I saw and evaluated the patient. I have also reviewed all the pertinent lab results and diagnostic results. I agree with the findings and the plan of care as documented in the PA's/METAL MINE INSPECTOR's documentation. [x] I have reviewed the ED Record and agree with the PA's/METAL MINE INSPECTOR's documentation. [] Additions or exceptions (if any) to the PAs/METAL MINE INSPECTOR's note and plan are summarized below: [] (NASREEN NI,DIANDRA Macias) Critical Care Note Critical Care Note Critical Care Time: non-applicable (JAXON SY)
[2016-08-26] MEDS ORDERED: GABAPENTIN600 M1 PO (22:22)
[2016-08-26] MEDS ORDERED: WELLBUTRIN XL300 M2 PO (22:22)
[2016-08-26 22:28] VITALS: BP 148/70
== END 2016-08-26 22:29 ==
LOC: ERH 20:17
DX: Z76.0 Encounter for issue of repeat prescription (principal); G89.29 Other chronic pain

== ENCOUNTER 2016-09-13 17:53 | Emergency (ER) | payer OTHER ==
[~2016-09-13] VITALS: Ht 188 cm; Wt 113.4 kg
[~2016-09-13 17:53] MED LIST changes: +WELLBUTRIN XL300 M2 PO
--- NOTE | 2016-09-13 18:29 | ED PSYCHIATRIC COMPLAINT ---
History of Present Illness General Chief Complaint: Psychiatric Related Complaint Stated Complaint: PT IS POSTIVE SI Source: patient Exam Limitations: no limitations Vital Signs & Intake/Output Vital Signs & Intake/Output Vital Signs Date Time Temp Pulse Resp B/P B/P Pulse O2 O2 Flow FiO2 Mean Ox Delivery Rate 09/13 1759 97.8 64 16 146/73 98 Allergies Coded Allergies: NO KNOWN ALLERGIES (09/25/12) Reconcile Medications Bupropion HCl 100 MG TABLET 50 MG PO 0800 & 1700 depression/anxiety Bupropion HCl (Wellbutrin XL) 300 MG TAB.ER.24H 1 TAB PO QAM MOOD DISORDER Gabapentin 400 MG CAPSULE 800 MG PO 0800,1400,2000 anxiety/neuropathic pain Gabapentin 600 MG TABLET 2 TAB PO TID MOOD DISORDER Melatonin 5 MG TABLET 5 MG PO 2200 insomnia Multivitamin (One Daily Multivitamin) 1 EACH TABLET 1 TAB PO 0800 VITAMIN SUPPORT Nicotine (Nicotine Patch) 21 MG/24 HOUR PATCH.TD24 21 MG TOP DAILY tobacco cessation Pantoprazole Sodium (Protonix) 20 MG TABLET.DR 1 TAB PO DAILY GI (Reported) Pantoprazole Sodium (Protonix) 20 MG TABLET.DR 1 TAB PO DAILY GI Triage Note: PT STATES HE HAS BEEN ON A LONG DRUG BINDGE AND FELT LIKE HURTING HIMSELF. PT SPOKE WITH HIS FAMILY AND THEY TALKED HIM OUT OF HURTING HIMSELF AND TALKED HIM INTO GETTING HELP. PT ADMITS TO USING COCAINE AND OPIOTES AND DRINKING. PT ADMITS TO USING ALL OF THE ABOVE TODAY AT SOME POINT. +SI WITH PLAN TO OD. PT DENIES HI. 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 Triage Nurses Notes Reviewed? yes Onset: Gradual Duration: week(s): (1) Timing: recent history Severity: severe Associated Symptoms: anxiety, suicidal ideation, DEPRESSION HPI: This is a 41-year-old male with history of anxiety, depression, polysubstance abuse who presents from home via private car with his sister for chief complaint of feeling suicidal. He states he has been in a drug and alcohol binge since last Monday. He recently lost his job and has been fighting with discomfort. He states his intent to overdose with drugs. Patient follows up with [facility]. He did he is on Wellbutrin and gabapentin. He states he has felt suicidal in the past before and is attempted with drugs. Any homicidal ideation. Denies any hallucinations or paranoia. He states he is just sick of turning to drugs and alcohol when things don't go well in his life. Patient states that he was sober for a little while before going on a binge on Monday. Patient uses daily alcohol. He states he gets the shakes when he doesn't drink but has never been in DTs. (HORACE MCDONNELL MD) Past History Travel History Traveled to [place] past 21 day No Medical History Any Pertinent Medical History? see below for history Neurological: NONE EENT: NONE Cardiovascular: NONE Respiratory: NONE Gastrointestinal: NONE Hepatic: NONE Renal: NONE Musculoskeletal: sciatica Psychiatric: alcohol dependence, depression, insomnia, opioid dependence, substance abuse Endocrine: pancreatitis Blood Disorders: NONE Cancer(s): NONE History of MRSA: No History of VRE: No History of CDIFF: No Influenza Vaccine: 02/02/16 Surgical History Surgical History: non-contributory Psychosocial History Who do you live with Friend What is your primary language Zimbabwean Tobacco Use: Current Daily Use Daily Tobacco Use Amount/Type: => 5 Cigarettes daily ETOH Use: alcoholic Illicit Drug Use: cocaine, heroin Family History Hx Contributory? No (HORACE MCDONNELL MD) Review of Systems Review of Systems Constitutional: Denies: chills, fever. EENTM: Reports: no symptoms. Respiratory: Denies: cough, orthopnea. Cardiovascular: Denies: chest pain, palpitations. GI: Reports: no symptoms. Genitourinary: Denies: discharge, dysuria, frequency, hematuria. Musculoskeletal: Reports: no symptoms. Skin: Reports: no symptoms. Neurological/Psychological: Reports: no symptoms. Hematologic/Endocrine: Denies: bruising, bleeding, polyuria, polydipsia. Immunologic/Allergic: Denies: splenectomy. All Other Systems: Reviewed and Negative (HORACE MCDONNELL MD) Physical Exam Physical Exam General Appearance: well developed/nourished, mild distress Head: atraumatic Eyes: Bilateral: PERRL, EOMI. Ears, Nose, Throat: normal pharynx, normal ENT inspection, hearing grossly normal Neck: normal inspection, supple Respiratory: normal breath sounds Cardiovascular: regular rate/rhythm Gastrointestinal: soft, non-tender Extremities: normal range of motion Neurological/Psychiatric: awake, alert, calm, therapeutic recreation leader II-XII nml as tested Appearance/Memory/Insight: appropriate insight, neat Behavoir/Eye Contact/Speech: cooperative Skin: intact, normal color, warm/dry SAD PERSONS SAD PERSONS Response Value Male Sex? yes 1 Depression/Hopelessness? yes 2 Previous Attempts/Psych Care yes 1 Excessive Ethanol/Drug Use? yes 1 Rational Thinking Loss? yes 2 Social Support? has no support 1 Stated Future Intent? yes 2 Total 10 SAD PERSONS Done? yes (KECIA NI,HORACE) Progress Differential Diagnosis: DEPRESSION, ANXIETY, POLYSUBSTANCE ABUSE, SUICIDAL IDEATION Plan of Care: Orders Procedure Date/time Status Continuous Observation Monitor 09/14 1827 Complete URINE DRUGS OF ABUSE 09/14 1827 Complete ETHANOL 09/14 1827 Complete COMPREHENSIVE METABOLIC PANEL 09/14 1827 Complete CBC WITHOUT DIFFERENTIAL 09/14 1827 Complete Laboratory Tests 09/13/161941: Anion Gap 9, Estimated GFR > 60, BUN/Creatinine Ratio 17.5, Glucose 123 H, Calcium 9.0, Total Bilirubin 0.3, AST 22, ALT 42, Alkaline Phosphatase 64, Total Protein 6.2 L, Albumin 3.7, Globulin 2.5, Albumin/Globulin Ratio 1.5, CBC w Diff NO MAN DIFF REQ, RBC 5.44, MCV 85.4, MCH 28.3, RDW 13.7, MPV 8.3, Gran % 68.9, Lymphocytes % 19.9 L, Monocytes % 7.1, Eosinophils % 3.5, Basophils % 0.6 , Absolute Granulocytes 5.6, Absolute Lymphocytes 1.6, Absolute Monocytes 0.6, Absolute Eosinophils 0.3, Absolute Basophils 0, PUBS MCHC 33.1, Serum Alcohol < 10.0 09/13/161857: Urine Opiates Screen 556.00, Methadone Screen < 40, Barbiturate Screen < 60, Ur Phencyclidine Scrn < 6.00, Amphetamines Screen 223, U Benzodiazepines Scrn < 85, Urine Cocaine Screen > 1000 H, Urine Cannabis Screen < 5.00 SITTER ORDER, CRISIS CONSULTATION, LABS, ETOH, UTOX (HORACE MCDONNELL MD) Hand-Off Endorsed To: CLEO SAUCEDA MD Endorsed Time: 1899 Pending: consult, labs (HORACE MCDONNELL MD) Comments: Patient's prolonged answers here to take him into custody for violating parole. Patient will be under constant supervision. (CLEO SAUCEDA MD) Departure Departure Condition: Stable Clinical Impression Primary Impression: Polysubstance abuse Secondary Impressions: Suicidal ideation Referrals: UNKNOWN (PCP) Departure Forms: Customer Survey General Discharge Information (KECIA NI,HORACE) Departure Disposition: HOME OR SELF CARE Additional Instructions: RETURN FOR ANY CONCERNS (SOHAIL NI,CLEO Hunt)
--- NOTE | 2016-09-13 19:12 | ED PSY CRISIS COLLATERAL NOTE ---
Collateral Note Collateral Note Family/Inform/Christy Contacts: SW spoke to the patients mother, Mely Saldana ([phone]), for collateral information. Mely reports that the patient has always had issues and that he had a difficult time in school. She notes that he was incarcerated for "a long time," because he is a sex offender," she did not elaborate on specifics or timeframe. She reports that he has been on probation and that she does not feel that his forward air controller/air officer is helpful. Mely reports that "he went somewhere near [facility]," however she did not think that it helped him. She was not clear on his treatment history, however believes that he has never been properly diagnosed or treated. She reports that he does do drugs, however does not do them in front of her. She states that the patient has talked about killing himself in the past, however has never acted on those thoughts, as far as she knows. She is concerned for his safety and would like him to get help. She would like to be updated re: plan of care.
[2016-09-13 19:57] LABS: ABSOLUTE BASOPHIL COUNT 0 /CUMM (0.0-0.2); ABSOLUTE EOSINOPHIL COUNT 0.3 /CUMM (0.0-0.7); ABSOLUTE GRANULOCYTE CT 5.6 /CUMM (1.4-6.5); ABSOLUTE LYMPH COUNT 1.6 /CUMM (1.2-3.4); ABSOLUTE MONOCYTE COUNT 0.6 /CUMM (0.10-0.60); BASOPHIL % 0.6 % (0.0-2.0); EOSINOPHIL % 3.5 % (0-5); GRANULOCYTE % 68.9 % (42.2-75.2); HEMATOCRIT 46.5 % (42-52); MEAN CORPUSCULAR HGB 28.3 PG (27.0-31.0); MEAN CORPUSCULAR HGB CONC 33.1 G/DL (33.0-37.0); MEAN CORPUSCULAR VOLUME 85.4 FL (80.0-94.0); MEAN PLATELET VOLUME 8.3 FL (7.4-10.4); PLATELET COUNT 218 /CUMM (130-400); RBC DISTRIBUTION WIDTH 13.7 % (11.5-14.5); RED BLOOD CELL CT 5.44 /CUMM (4.70-6.10); WHITE BLOOD CELL COUNT 8.1 /CUMM (4.8-10.8)
--- NOTE | 2016-09-13 20:16 | ED PSY CRISIS COLLATERAL NOTE ---
See Addendum Collateral Note Collateral Note Family/Inform/Christy Contacts: SW received a call from the patients correction officer, Марина Adam ). Марина notes that the patient left his "parole approved residence last week." Марина notes, that she believes the patient has relapsed on substances. Марина states that she is recommending inpatient treatment at this time, however is not clear if he needs a dual diagnosis inpatient psychiatric admission or a dual diagnosis substance abuse program. She will await the recommendations from the psychiatrist and would like to be notified of the patients disposition.
[2016-09-13 21:41] VITALS: BP 138/78
== END 2016-09-13 21:42 ==
LOC: ERH 17:53
PROVIDERS: Emergency Medicine
DX: F11.10 Opioid abuse, uncomplicated (principal); F14.10 Cocaine abuse, uncomplicated; R45.851 Suicidal ideations
CPT/HCPCS: 80307; G0480